=== PATIENT | female | born 1970 | race Caucasian/White ===

== ENCOUNTER 2020-09-25 09:16 | Outpatient (REF) | payer OTHER, SELFPAY ==
[2020-09-25 09:34] LABS: COVID-19 Test Negative (Negative); IDNOW Serial# 55D5AD1C
== END 2020-09-25 09:17 | disposition home or self-care (01) ==
LOC: HO.EMPCOV 09:16
PROVIDERS: Visit Provider Internal Medicine
DX: Z20.828 Contact with and (suspected) exposure to other viral communicable diseases (principal)
CPT/HCPCS: 36415; 87635; C9803

== ENCOUNTER → 2020-12-04 09:26 | Outpatient (BNVA) | payer OTHER, SELFPAY | PROVIDERS: Visit Provider Physician Assistant | DX: M77.11 Lateral epicondylitis, right elbow (principal) | CPT/HCPCS: 20551; 20600; J1020 ==

== ENCOUNTER 2021-04-26 07:38 | Day surgery (SDC) | payer OTHER, SELFPAY ==
[2021-04-23 08:32] VITALS: BMI 30.4
--- NOTE | 2021-04-25 13:09 | P.CONAN_ITS ---
Documented by User: Rachael Saavedra 04/25/21 13:14 HPI - Anesthesia Eval Consult details Narrative: 50yo F for Upper Endoscopy and Colonoscopy afib, no anticoag PMFSH Active Problems Active Problems: All Active Problems (Updated 04/24/21 @ 14:23 by Sarai Zapata) Right tennis elbow (Acute) Past Medical History Medical History (Updated 04/24/21 @ 14:23 by Sarai Zapata) Arrhythmia Atrial fibrillation COVID-19 vaccine series completed GERD (gastroesophageal reflux disease) Mitral valve prolapse Family History Family History Mother No problems noted. Father No problems noted. Surgical History Surgical History (Updated 04/24/21 @ 14:23 by Sarai Zapata) H/O colonoscopy History of cardiac radiofrequency ablation History of esophagogastroduodenoscopy (EGD) Social History Social History Alcohol intake: current Advance Directives: No Advance Directives Information Provided: Yes Meds Allergies Allergy/AdvReac Type Severity Reaction Status Date / Time azithromycin [AZITHROMYCIN] Allergy Intermediate ABDOMINAL Verified 04/23/21 08:32 PAIN Penicillins [PENICILLINS] Allergy Unknown ? RXN Verified 12/04/20 09:31 BABY - ? HIVES Home Medications Medication Instructions Recorded Confirmed Last Taken Type metoprolol succinate 50 mg 1 tab PO DAILY 04/23/21 04/23/21 Unknown History tablet,extended release 24 hr esomeprazole magnesium 40 mg 40 mg PO DAILY 04/24/21 04/24/21 Unknown History capsule,delayed release Exam Exam Date and Time: April 25, 2021 1309 Height,Weight and Vital Signs: Height 5 ft 7.5 in Weight 89.358 kg Narrative Narrative: ECHO 2019 LV sys function is normal LVEF 60-65% Mild anterior mitral leaf thickening but no prolapse. No significant mitral regurg. Mild tricuspid regurg Assessment and Plan Assessment Anesthesia Assessment: Chart Reviewed Documented by User: Yaquelin Gamboa 04/26/21 08:51 [facility] Past Medical History Medical History (Updated 04/24/21 @ 14:23 by Sarai Zapata) Arrhythmia Atrial fibrillation COVID-19 vaccine series completed GERD (gastroesophageal reflux disease) Mitral valve prolapse Functional capacity: independent ambulation Patient : No Family History Family History Mother No problems noted. Father No problems noted. Family history of problems with anesthesia: No Surgical History Surgical History (Updated 04/24/21 @ 14:23 by Sarai Zapata) H/O colonoscopy History of cardiac radiofrequency ablation History of esophagogastroduodenoscopy (EGD) Social History Social History Alcohol intake: current Advance Directives: No Advance Directives Information Provided: Yes Meds Allergies Allergy/AdvReac Type Severity Reaction Status Date / Time azithromycin [AZITHROMYCIN] Allergy Intermediate ABDOMINAL Verified 04/23/21 08:32 PAIN Penicillins [PENICILLINS] Allergy Unknown ? RXN Verified 12/04/20 09:31 BABY - ? HIVES Home Medications Medication Instructions Recorded Confirmed Last Taken Type metoprolol succinate 50 mg 1 tab PO DAILY 04/23/21 04/23/21 Unknown History tablet,extended release 24 hr esomeprazole magnesium 40 mg 40 mg PO DAILY 04/24/21 04/24/21 Unknown History capsule,delayed release Exam Airway TM Dist: >3cm Neck ROM: Full Heart: RRR Lungs: CTA Assessment and Plan Final Anesthetic Review Family History of Problems with Anesthesia: No
[2021-04-26 08:03] LABS: UPreg QC Valid YES; Urine Pregnancy NEGATIVE (NEGATIVE)
[2021-04-26 08:23] VITALS: BP 139/79; PULSE 80; RESP 20; TEMP 37.1; O2SAT 98
[2021-04-26] MEDS: Lactated Ringers 1,000 ML 100 ML IVCONT (08:33)
--- NOTE | 2021-04-26 09:27 | P.HPSUR_ITS ---
Pre-Procedural Eval Section A Date of Service: 04/26/21 Section B Chief Complaint: reflux disease,change in bowel Details of Present Illness: gerd, change in bowels Relevant Family History (Specify if Yes): No Relevant Social History: None Present Medications: see Short Stay Collaborative assessment Medical History: No relevant PMH History of Previous Operations: No relevant previous surgery Allergies: Allergies Allergy/AdvReac Type Severity Reaction Status Date / Time azithromycin [AZITHROMYCIN] Allergy Intermediate ABDOMINAL Verified 04/23/21 08:32 PAIN Penicillins [PENICILLINS] Allergy Unknown ? RXN Verified 12/04/20 09:31 BABY - ? HIVES Review of Systems Sugical H&P ROS: Negative: Constitution, Cardiovascular, Respiratory, Neurological, Psychiatric, Hem-Onc, Allergic/Immunologic, Gastrointestinal, Ge nitourinary, Musculoskeletal, Integumentary, Endocrine and Eyes/Ears/Nose/Throat Exam Surgical H&P Exam: Normal: HEENT, Normal: Heart, Normal: Lungs, Normal: Extremities, Normal: Abdomen, Normal: Skin and Normal: Neurological Plan Diagnosis/Plan: Unchanged I have reviewed the history and physical and performed a pertinent physical examination on my patient. No changes have occurred unless specified.
[2021-04-26 10:07] VITALS: BP 116/63; PULSE 77; RESP 16; TEMP 37; O2SAT 99
--- NOTE | 2021-04-26 10:07 | PM.OP ---
Brief Operative Note Date of Service: 04/26/21 Pre-op diagnosis: gerd, change inbowels Post-op diagnosis: same Procedure: egd,colon Surgeon: Rebel Matias Anesthesia: MAC Was an Mouthpiece Maker used for this Procedure?: No Estimated blood loss (mL): 5 Pathology: other (see nurses notes) Condition: stable Disposition: PACU
--- NOTE | 2021-04-26 10:20 | OP_ITS ---
SURGEON: Rebel Matias MD INDICATIONS: 1. Gastroesophageal reflux disease. 2. Change in bowel habits. PREOPERATIVE DIAGNOSIS: POSTOPERATIVE DIAGNOSIS: PROCEDURE PERFORMED: ESTIMATED BLOOD LOSS: COMPLICATIONS: ANESTHESIA: Medications, monitored anesthesia care. ASSISTANTS: SPECIMENS: PROCEDURES PERFORMED: 1. Upper endoscopy with biopsy. 2. Colonoscopy to the terminal ileum. DESCRIPTION OF PROCEDURE: History and physical performed. The risks and benefits of the procedure were explained to the patient. An informed consent was obtained. The patient was placed in left lateral decubitus position. The videogastroscope was introduced into the esophagus, stomach, and duodenum. Examination was performed. The scope was removed. She tolerated the procedure well and was repositioned for colonoscopy. Digital rectal exam was performed and was found to be normal. The Olympus pediatric video colonoscope was introduced into the rectum and advanced to the cecum without difficulty. The cecum was identified by transillumination, palpation, and identification of ileocecal valve. Examination was performed. The scope was removed. She tolerated both procedures well and was taken to the recovery area in stable condition. FINDINGS: UPPER ENDOSCOPY: ESOPHAGUS: The esophagus was normal. Biopsies were obtained from the EG junction. There was no esophagitis. STOMACH: Stomach showed multiple benign-appearing gastric polyps, mainly in the fundus, all less than 10 mm. Two of these were biopsied. The previously noted pancreatic rest was present in the antrum measuring approximately 10 to 12 mm. This had a dimpled appearance. Biopsies were obtained from the mucosa. Antral biopsies were also obtained to evaluate for H pylori. DUODENUM: The bulb and second portion were normal. COLONOSCOPY: The terminal ileum was normal. The visualized colonic mucosa was normal. The quality of the prep was good. No polyps were identified. Retroflexed examination showed small internal hemorrhoids. There was mild sigmoid diverticulosis. IMPRESSION: 1. Gastroesophageal reflux disease. 2. Normal colonoscopy. RECOMMENDATIONS: 1. Follow up biopsy results. 2. Repeat colonoscopy is recommended in 10 years for average risk individuals. MD TERRI Talbert/MAY / [id number] MTDD
[2021-04-26 10:22] VITALS: BP 117/57; PULSE 73; RESP 16; TEMP 37; O2SAT 98
--- NOTE | 2021-04-26 12:18 | HO.POSTANES ---
Post Anesthesia Evaluation Post Anesthesia Evaluation Vital Signs: Vital Signs Temp Pulse Resp BP Pulse Ox 04/26/21 10:22 98.6 F 73 16 117/57 L 98 04/26/21 10:07 98.6 F 77 16 116/63 99 04/26/21 08:23 98.7 F 80 20 139/79 98 Anesthesia: Monitored Mental Status: Awake Pain Control: Satisfactory Nausea/Vomiting: None Hydration: Adequate Anesthesia-Related Issues: No Anes. Related Issues
== END 2021-04-26 11:33 | disposition home or self-care (01) ==
PROVIDERS: Nurse Practitioner; PCP Internal Medicine; Visit Provider Internal Medicine Gastroenterology
PROC: (CPT 45378; principal; 2021-04-26 09:10)
DX: R19.4 Change in bowel habit (principal); Z86.010 Personal history of colon polyps; K57.30 Diverticulosis of large intestine without perforation or abscess without bleeding; K64.8 Other hemorrhoids; K21.9 Gastro-esophageal reflux disease without esophagitis; K31.7 Polyp of stomach and duodenum; I48.91 Unspecified atrial fibrillation; I34.1 Nonrheumatic mitral (valve) prolapse; J32.9 Chronic sinusitis, unspecified; Z79.899 Other long term (current) drug therapy; Z87.891 Personal history of nicotine dependence; Z88.0 Allergy status to penicillin; Z88.1 Allergy status to other antibiotic agents
CPT/HCPCS: 45378; 43239; 81025; 88305; 88342

== ENCOUNTER → 2021-05-14 15:02 | Outpatient (BNVA) | payer OTHER, SELFPAY | PROVIDERS: PCP Internal Medicine; Referring Provider Internal Medicine; Visit Provider Internal Medicine Cardiovascular Disease | DX: I48.0 Paroxysmal atrial fibrillation (principal); R00.2 Palpitations | CPT/HCPCS: 93005 ==

== ENCOUNTER 2021-07-02 07:27 | Outpatient (REF) | payer OTHER, SELFPAY ==
--- NOTE | ~2021-07-02 | MM_ITS ---
EXAMINATION: MM SCREENING DIGITAL BREAST TOMOSYNTHESIS, BILATERAL CLINICAL INFORMATION: Screening. Asymptomatic. Personal history ultrasound-guided left breast biopsy 2016, fibroadenoma. Family history 5 maternal cousins with breast cancer. The lifetime risk of breast cancer based on the Tyrer-Cuzick Model is 16%. COMPARISON: Mammography: 06/07/2020, 02/24/2019, 12/08/2017 TECHNIQUE: Digital breast tomosynthesis is performed in both the craniocaudal and mediolateral oblique views along with computer-aided detection (CAD). Synthesized 2D images are generated from the tomosynthesis. FINDINGS: There are scattered areas of fibroglandular density (ACR BI-RADS breast composition Category b). Parenchymal pattern is similar to prior exams. There is no interval mass or architectural lesion or developing density. No abnormal calcifications. Again, there is a biopsy clip marker overlying stable macrolobulated nodule posterior upper outer left breast corresponding to the known fibroadenoma. There is a dermal lesion overlying the posterior 6:00 right breast. The axilla are unremarkable. No significant changes from prior exams. MM/MM tomosynthesis screening BI IMPRESSION: No mammographic evidence of malignancy. ASSESSMENT: BI-RADS 2: Benign RECOMMENDATION: Routine annual mammography screening. This patient's information was entered into a reminder system with a target due date for their next mammogram.
== END 2021-07-02 07:28 | disposition home or self-care (01) ==
LOC: HO.MAMMO 07:27
PROVIDERS: PCP Internal Medicine; Visit Provider Obstetrics & Gynecology Obstetrics
DX: Z12.31 Encounter for screening mammogram for malignant neoplasm of breast (principal)
CPT/HCPCS: 77063; 77067

== ENCOUNTER → 2021-07-08 07:06 | Outpatient (REF) | payer OTHER, SELFPAY ==
--- NOTE | 2021-07-08 07:09 | HM_ITS ---
Total monitoring time 2 days and 23 hours. Underlying rhythm is sinus. Minimum heart rate 47/Min. Maximum 121/minute. Average 60/Min. No atrial fibrillation or flutter. No pauses. Rare PACs; longest episode of 8 beats. Minimal burden. 2 patient events, possibly related to PACs. MTDD
== END ==
LOC: HO.CARD 07:06
PROVIDERS: PCP Internal Medicine; Visit Provider Internal Medicine Cardiovascular Disease
DX: R00.2 Palpitations (principal)
CPT/HCPCS: 93242

== ENCOUNTER 2021-10-29 07:43 | Outpatient (REF) | payer OTHER, SELFPAY ==
--- NOTE | ~2021-10-29 | XR_ITS ---
EXAMINATION: XR HAND, LEFT CLINICAL INFORMATION: Pain COMPARISON: None TECHNIQUE: PA, lateral, and oblique views of the left hand. FINDINGS: Bone alignment is normal. No fracture or dislocation is seen. There may be ulnar minus variance at the wrist. Joint spaces are normal. Soft tissues are normal. XR/XR hand LT min 3V IMPRESSION: Ulnar minus variance at the wrist otherwise unremarkable exam.
== END 2021-10-29 07:44 | disposition home or self-care (01) ==
LOC: HO.HOSX 07:43
PROVIDERS: Visit Provider Physician Assistant
DX: M67.442 Ganglion, left hand (principal)
CPT/HCPCS: 20612; 73130

== ENCOUNTER → 2022-05-19 15:17 | Outpatient (BNVA) | payer OTHER, SELFPAY | PROVIDERS: PCP Internal Medicine; Referring Provider Internal Medicine; Visit Provider Internal Medicine Cardiovascular Disease | DX: I48.0 Paroxysmal atrial fibrillation (principal) | CPT/HCPCS: 93005 ==

== ENCOUNTER 2022-07-04 07:18 | Outpatient (REF) | payer OTHER, SELFPAY ==
--- NOTE | ~2022-07-04 | MM_ITS ---
EXAMINATION: MM SCREENING DIGITAL BREAST TOMOSYNTHESIS, BILATERAL CLINICAL INFORMATION: Screening. Asymptomatic. The lifetime risk of breast cancer based on the Tyrer-Cuzick Model is 19%. COMPARISON: Mammography: 07/02/2021, 06/07/2020, 02/24/2019, 12/08/2017 TECHNIQUE: Digital breast tomosynthesis is performed in both the craniocaudal and mediolateral oblique views along with computer-aided detection (CAD). Synthesized 2D images are generated from the tomosynthesis. FINDINGS: There are scattered areas of fibroglandular density (ACR BI-RADS breast composition Category b). There are no significant masses, abnormal calcifications, or other abnormalities. Parenchymal pattern is similar to prior studies. There is no developing density or architectural abnormality. There is a ribbon shaped biopsy clip marker overlying stable nodule posterior upper outer left breast, consistent with biopsy proven fibroadenoma. Incidental dermal lesion again noted overlying posterior 6:00 right breast. The axilla and skin contours are unremarkable. No significant changes. MM/MM tomosynthesis screening BI IMPRESSION: No mammographic evidence of malignancy. ASSESSMENT: BI-RADS 2: Benign RECOMMENDATION: Routine annual mammography screening. This patient's information was entered into a reminder system with a target due date for their next mammogram.
== END 2022-07-04 07:19 | disposition home or self-care (01) ==
LOC: HO.MAMMO 07:18
PROVIDERS: PCP Internal Medicine; Visit Provider Internal Medicine
DX: Z12.31 Encounter for screening mammogram for malignant neoplasm of breast (principal)
CPT/HCPCS: 77063; 77067

== ENCOUNTER 2022-11-18 11:09 | Outpatient (REF) | payer OTHER, SELFPAY ==
--- NOTE | ~2022-11-18 | MR_ITS ---
EXAMINATION: MR KNEE WITHOUT CONTRAST, LEFT CLINICAL INFORMATION: Left knee pain. Effusion. COMPARISON: Left knee radiographs dated 05/19/2022. TECHNIQUE: MRI of the knee without contrast was performed using routine sequences on a high-field scanner. FINDINGS: MENISCI: Medial Meniscus: Edema along the periphery of the posterior meniscal body and posterior horn which could indicate a nondisplaced meniscocapsular injury. No articular surface meniscal tear. Lateral Meniscus: Intact. LIGAMENTS: Cruciate: Intact. Collateral: Minimal edema adjacent to the medial collateral ligament consistent with a grade 1 sprain. Intact fibular collateral ligament. EXTENSOR MECHANISM: Intact. ARTICULAR CARTILAGE/BONE: Patellofemoral Compartment: Patellar median ridge and lateral patellar facet articular cartilage signal heterogeneity with areas of full-thickness fissuring and minimal subchondral cystic change. Central and medial trochlea signal heterogeneity with areas of near full-thickness loss. Small marginal osteophytes. Medial Compartment: Articular cartilage thinning with near full-thickness loss at the weightbearing medial femoral condyle. Small marginal osteophytes. Lateral Compartment: Lateral tibial plateau partial-thickness articular cartilage loss with adjacent lateral femoral condyle focal full-thickness loss. Tiny marginal osteophytes. JOINT FLUID AND BURSAE: Small joint effusion and small Crump's cyst. Small loose bodies within the superolateral joint recess measuring up to 0.3 and 0.5 cm. Diffuse lobulated loose bodies versus synovitis within the Crump's cyst measuring up to 2.3 cm in craniocaudal dimension. MR/MR knee LT wo con IMPRESSION: 1. Edema along the periphery of the medial meniscus posterior body and posterior horn which could indicate a nondisplaced meniscocapsular injury. No articular surface meniscal tear. 2. Probable grade 1 sprain of the medial collateral ligament. 3. Mild tricompartmental osteoarthritis. Small joint effusion and small Crump's cyst. Multiple loose bodies within the superolateral joint recess measuring up to 0.5 cm. Diffuse lobulated loose bodies versus synovitis within the Crump's cyst measuring up to 2.3 cm.
== END 2022-11-18 11:10 | disposition home or self-care (01) ==
LOC: HO.MRI 11:09
PROVIDERS: PCP Internal Medicine; Visit Provider Physician Assistant
DX: M17.12 Unilateral primary osteoarthritis, left knee (principal)
CPT/HCPCS: 73721

== ENCOUNTER 2022-11-28 06:42 | Outpatient (REF) | payer OTHER, SELFPAY ==
[2022-11-28 06:52] LABS: MANUAL DIFF FLAG NO
[2022-11-28 07:59] LABS: Basophils Percent Auto 0.4 % (0-2); Eosinophils Absolute Auto 0.3 X10*3/uL (0.0-0.4); Eosinophils Percent Auto 3.8 % (0-4); Hematocrit 41.3 % (37.0-47.0); Hemoglobin 13.5 g/dl (12.0-16.0); Imm Gran Abs Auto 0.05 X10*3/uL (0.00-0.03); Imm Gran Pct Auto 0.7 % (0.0-0.4); Lymphocytes Absolute Auto 1.6 X10*3/uL (1.2-4.9); Mean Corpuscular HGB Conc 32.7 g/dl (31.0-35.0); Mean Corpuscular Hemoglobin 29.2 pg (27.0-33.0); Mean Corpuscular Volume 89.2 fL (80.0-98.0); Mean Platelet Volume 10.5 fL (9.4-12.3); Monocytes Absolute Auto 0.5 X10*3/uL (0.1-1.2); Monocytes Percent Auto 6.4 % (2-11); Neutrophils Absolute Auto 4.8 x10*3/uL (2.0-8.3); Neutrophils Percent Auto 66.7 % (45-73); Platelet Count 212 X10*3/uL (160-400); Red Blood Count 4.63 X10*6/uL (4.20-5.50); White Blood Count 7.2 X10*3/uL (4.8-10.8)
[2022-11-28 08:10] LABS: Estimated Average Glucose 94 mg/dL; Hemoglobin A1c % 4.9 %
[2022-11-28 08:42] LABS: Alanine Aminotransferase 34 U/L (0-31); Albumin Level 4.3 g/dL (3.5-5.0); Alkaline Phosphatase 66 U/L (39-117); Anion Gap 11 (12-20); Aspartate Amino Transferase 23 U/L (5-31); Bilirubin Total 0.5 mg/dL (0.0-1.0); Blood Urea Nitrogen 15 mg/dL (9-16); Carbon Dioxide 27 mmol/L (22-29); Chloride 107 mmol/L (96-108); Cholesterol 209 mg/dL; Estimated Glomerular Filt Rate > 60; Glucose Random 95 mg/dL (60-115); HDL Cholesterol 48 mg/dL; LDL Cholesterol Calculated 144 mg/dl; Potassium 4.3 mmol/L (3.3-5.1); Sodium 141 mmol/L (135-145); Total Protein 6.7 g/dL (6.5-8.0); Triglycerides 88 mg/dL
[2022-11-28 09:00] LABS: Thyroid Stimulating Hormone 1.46 uIU/mL (0.32-4.0); Vitamin D 25-OH Total 22.3 ng/mL (>30)
[2022-11-28 10:16] LABS: Appearance Urine Cloudy; Color Urine Dark Yellow; Glucose Urine UA Negative (Negative); Leukocyte Esterase Urine Trace (Negative); Nitrite Urine Negative (Negative); PH 5.5 (5.0-9.0); Specific Gravity - Urine 1.025 (1.005-1.025); UMIC TRIGGER UA YES; Urine Blood Moderate (2+) (Negative); Urine Ketones Trace mg/dL (Negative); Urine Protein Negative (Neg-Trace)
[2022-11-28 10:25] LABS: Bacteria Urine 1+ (None Seen); Hyaline Casts Urine 0-2 /LPF (0-2); Squamous Epithelial Cell Urine >20 /HPF (0-2); WBC Urine 0-5 /HPF (0-5)
== END 2022-11-28 06:43 | disposition home or self-care (01) ==
LOC: HO.LAB 06:42
PROVIDERS: PCP Internal Medicine; Visit Provider Internal Medicine
DX: R53.81 Other malaise (principal); E78.00 Pure hypercholesterolemia, unspecified; R53.83 Other fatigue; R73.01 Impaired fasting glucose; E55.9 Vitamin D deficiency, unspecified
CPT/HCPCS: 36415; 80053; 80061; 81001; 81003; 82306; 83036; 84443; 85025

== ENCOUNTER → 2023-01-20 10:41 | Outpatient (REF) | payer OTHER, SELFPAY ==
--- NOTE | 2023-01-20 10:46 | ECG_ITS ---
Test Reason : i10 htn preop Blood Pressure : / mmHG Vent. Rate : 062 BPM Atrial Rate : 062 BPM P-R Int : 150 ms QRS Dur : 088 ms QT Int : 428 ms P-R-T Axes : 029 026 025 degrees QTc Int : 434 ms Normal sinus rhythm Normal ECG No previous ECGs available Referred By: Sabas Hewitt Electronically Signed By:LEATHA FUNK MD
== END ==
LOC: HO.CARD 10:41
PROVIDERS: PCP Internal Medicine; Visit Provider Orthopaedic Surgery
DX: I10 Essential (primary) hypertension (principal)
CPT/HCPCS: 93005

== ENCOUNTER → 2023-01-21 12:07 | Outpatient (BNVA) | payer OTHER, SELFPAY | PROVIDERS: PCP Internal Medicine; Visit Provider Physician Assistant Medical | DX: Z13.89 Encounter for screening for other disorder (principal) | CPT/HCPCS: 36415; 84450; 84460; 86803; 87389; 99203 ==

== ENCOUNTER 2023-04-15 14:00 | Outpatient (RCR) | payer OTHER, SELFPAY | END 2023-04-15 15:27 | disposition home or self-care (01) | LOC: HO.PT 14:00 | PROVIDERS: PCP Internal Medicine; Visit Provider Orthopaedic Surgery | DX: M24.661 Ankylosis, right knee (principal) | CPT/HCPCS: 97110; 97140; 97162; 97530 ==

== ENCOUNTER → 2023-07-14 14:47 | Outpatient (REF) | payer OTHER, SELFPAY ==
--- NOTE | 2023-07-14 14:51 | CA_ITS ---
Transthoracic Echocardiogram Patient (Last, First, Middle): Lizzy Ayon M Gender: Female Date of : 1970 Age: 52 Procedure Date: 07/14/2023 Procedure Type: Transthoracic Echocardiogram Location: OP Height: 170.18 cm Weight: 88.45 kg BSA: 2.00 m2 Heart Rate: bpm BP: 118 / 78 mmHg Tangled Yarn Worker: TO Referring MD: Naveen Avitia MD Street Car Mechanic: Naveen Avitia MD Symptoms: I48.0 - Paroxysmal atrial fibrillation Study Quality: Adequate ECG Rhythm: Sinus Conclusions: - 1. Normal LV ejection fraction of 60-65% 2. Mildly dilated left atrium 3. Normal cardiac valvular Dopplers next 4. Normal RV systolic pressure 5. No pericardial effusion Findings Left Ventricle Normal left ventricular size, thickness, and systolic function. The visually estimated ejection fraction is between 60-65%. Spectral Doppler is indicative of a normal filling pattern. Peak GLS is -19.5%, within normal limits. Right Ventricle Normal right ventricular cavity size and systolic function. Atria The left atrium is mildly dilated. There is no evidence of interatrial shunt. The right atrium is normal in size. Aortic Valve Normal aortic valve structure and function. There is no aortic valve stenosis. There is no aortic valve regurgitation. Mitral Valve There is mild anterior mitral leaflet thickening. There is trace mitral valve regurgitation. There is no mitral valve stenosis. Pulmonic Valve The pulmonic valve is likely normal. There is trace pulmonic valve regurgitation. Tricuspid Valve Normal tricuspid valve structure. There is trace tricuspid valve regurgitation. Normal right atrial pressure. There is no evidence of pulmonary hypertension. Great Vessels All visible segments of the aorta are normal in size. The pulmonary artery was not well visualized. Venous The inferior vena cava is normal in size and collapses greater than 50% with inspiration. Pericardium/Pleural There is no evidence of pericardial effusion. Prior Study Comparison No significant change compared to prior study dated: 05/14/2019. Measurements 2D Linear Measurements IVSd: 1.10 0.6-0.9/0.6-1.0 cm LVIDd: 5.30 3.9-5.3/4.2-5.9 cm LVIDd Index: 2.65 2.4-3.2/2.2-3.1 cm/m2 LVIDs: 3.20 2.0-3.6 cm LVPWd: 0.80 0.7-1.1 cm LA Diam: 4.10 2.7-3.8/3.0-4.0 cm LAIDs Index: 2.05 1.5-2.3 cm/m2 LV Mass: 233.35 67-162/88-224 g LV Mass Index: 116.67 43-95/49-115 g/m2 LVOT Diam: 2.20 3.0+(-)1.3 cm 2D Systolic Function EF 4C: 59.90 >55% EF 2C: 64.40 >55% EF BiP: 61.70 >55% Mitral Valve MV Pk E: 0.59 MV PK A: 0.33 MV Decel Time: 309.00 E/A: 1.80 E'Lateral: 13.30 E'Medial: 7.72 E/E' Med: 7.70 E/E' Lat: 4.40 PHT: 91.00 MVA PHT: 2.42 Decel Caroline: 1.91 Aortic Valve AoV Pk Toby: 1.78 AoV Mn Toby: 1.16 AoV VTI: 0.38 AoV Pk Grad: 13.00 Aov Mn Grad: 6.00 ELLA Cont.VTI: 2.37 LVOT LVOT Pk Toby: 1.13 LVOT Mn Toby: 0.68 LVOT VTI: 0.24 LVOT Pk Grad: 5.00 LVOT Mn Grad: 2.00 LVOT Diam: 2.20 LVOT Area: 3.80 Diastolic Function MV Pk E: 0.59 MV Pk A: 0.33 E/A: 1.80 E'Medial: 7.72 E/E' Med: 7.70 E' Laterial: 13.30 E/E' Lat: 4.40 Right Ventricle TAPSE (mm): 24.40 TVS' Toby: 11.70 Tricuspid Valve TR Pk Toby: 2.43 TR Pk Grad: 24.00 RA Press: 8.00 RVSP: 32.00 Great Vessels Aorta Sinus of Valsalva: 2.90 2.0-3.5 cm Ao Asc: 3.30 2.1-3.4 cm Updated in Other Vendor System with Status of Final Naveen Avitia MD electronically signed on 07/15/2023 12:48:53 PM with status of Final
== END ==
LOC: HO.CARD 14:47
PROVIDERS: PCP Internal Medicine; Visit Provider Internal Medicine Cardiovascular Disease
DX: I48.0 Paroxysmal atrial fibrillation (principal); R00.2 Palpitations
CPT/HCPCS: 93306; 93356

== ENCOUNTER → 2023-07-14 14:51 | Outpatient (BNV) | payer OTHER, SELFPAY | PROVIDERS: PCP Internal Medicine; Visit Provider Internal Medicine Cardiovascular Disease | DX: I48.0 Paroxysmal atrial fibrillation (principal) | CPT/HCPCS: 93306 ==

== ENCOUNTER 2023-07-15 09:56 | Emergency (ER) | payer OTHER, SELFPAY ==
--- NOTE | 2023-07-15 | ECG_ITS ---
Test Reason : cp Blood Pressure : / mmHG Vent. Rate : 080 BPM Atrial Rate : 080 BPM P-R Int : 144 ms QRS Dur : 084 ms QT Int : 386 ms P-R-T Axes : 062 022 -06 degrees QTc Int : 445 ms Normal sinus rhythm Nonspecific ST abnormality Abnormal ECG When compared with ECG of 20-JAN-2023 10:55, ST now depressed in Inferior leads Lateral leads Referred By: Generic ED Physician Electronically Signed By:HELDER PALMER MD
[2023-07-15 10:09] VITALS: BP 158/78; PULSE 82; RESP 18; TEMP 36.3; O2SAT 98; BMI 30.1
--- NOTE | 2023-07-15 10:32 | ED.CHESTPAIN ---
HPI - Chest Pain General Chief Complaint: Chest Pain Stated Complaint: Chest Pain Time Seen by Provider: 07/15/23 10:24 Source: patient Mode of arrival: ambulatory Limitations: no limitations History of Present Illness HPI narrative: anxiety attack at work followed by continued chest pain MD complaint: chest pain Onset (ago): minute(s) Timing of current episode: constant Related Data Home Medications Medication Instructions Recorded Confirmed esomeprazole magnesium 40 mg 40 mg PO DAILY 04/24/21 05/19/22 capsule,delayed release sertraline 50 mg tablet 50 mg PO DAILY 05/19/22 05/19/22 Previous Rx's Medication Instructions Recorded metoprolol succinate 50 mg 50 mg PO DAILY 90 days #90 tabs 03/26/23 tablet,extended release 24 hr Allergies Allergy/AdvReac Type Severity Reaction Status Date / Time azithromycin [AZITHROMYCIN] Allergy Intermediate ABDOMINAL Verified 07/15/23 10:09 PAIN Penicillins [PENICILLINS] Allergy Unknown ? RXN Verified 07/15/23 10:09 BABY - ? HIVES Review of Systems Review of Systems: Yes all other systems are reviewed and are negative Neurologic: Denies Sensory deficit (Neuro) [facility] Past Medical History Medical History Paroxysmal atrial fibrillation COVID-19 vaccine series completed Arrhythmia GERD (gastroesophageal reflux disease) Mitral valve prolapse Surgical History History of cardiac radiofrequency ablation H/O colonoscopy History of esophagogastroduodenoscopy (EGD) Family History Family History Mother No problems noted. Father No problems noted. Social History Social History Unable to assess alcohol history related to: Unknown Alcohol intake: current Smoked in Last 30 Days: No Use of substances other than those prescribed or required for medical reasons: Unknown Advance Directives: No Patient : No Physical Exam Vital Signs: Vital Signs: Last Vital Signs Temp 97.4 F 07/15/23 10:09 Pulse 73 07/15/23 11:51 Resp 20 07/15/23 11:51 BP 134/78 07/15/23 11:51 Pulse Ox 99 07/15/23 11:51 O2 Del Method Room Air 07/15/23 11:51 BMI result Body Mass Index 30.1 Const: Other: tearful, obese female Nutritional Appearance: obese Orientation/consciousness: oriented to person and patient oriented x3 Limitations: no limitations HEENT: Head: Yes normal to inspection Ears: external ears normal General nose exam: Normal external nose present Mouth: Normal oral and palatal mucosa present and oropharynx normal Throat: Yes posterior oropharynx normal Eyes: General: appearance normal, both eyes and all related structures Neck: Other: supple Neck: Yes normal visual inspection Chest: Chest palpation & inspection: normal inspection of the chest Resp: Auscultation: clear to auscultation bilaterally Cardio: Jugular venous distension: no JVD Rate: regular rate Rhythm: regular rhythm Heart sounds: S1 normal heart sound present and S2 normal heart sound present GI: Inspection: Yes normal to inspection Palpation (GI): Soft to palpation, nontender and No hepatosplenomegaly present Auscultation: normal bowel sounds : General: Yes no CVA tenderness Back/Spine/Pelvis: Back: no CVA tenderness Skin: General skin exam: no rashes or lesions noted Neuro: General: oriented to person and patient oriented x3 Cranial nerves: Yes CN's II-XII intact bilaterally Motor exam (neuro): 5/5 motor strength present throughout Sensory Exam: No Sensory deficit (Neuro) Extrem: General: Yes normal to inspection Psych: Appearance: grossly normal Course Reevaluation(s) Reevaluation #1: Initial EKG had st depressions inferiorly, her troponin was 20. Her repeat EKG is normal but her troponin is 800. Discussed with Dr. Avitia will transfer to [facility] Time: 14:02 Reevaluation #2: I spent 40 minutes of critical care, with interventions, assessments, speaking to patient, consultants, and family. Time: 14:02 Medications Administered Generic Name Dose Route Start Last Admin Trade Name Freq PRN Reason Stop Dose Admin Aspirin 162 mg 07/15/23 10:45 07/15/23 10:45 Aspirin Enteric Coated 81 Mg Tablet. PO 162 mg DAILY BRUNA Administration Heparin Sodium/Sodium Chloride 25,000 unit in 250 mls @ 0 mls/hr 07/15/23 14:15 07/15/23 14:29 Heparin Sodium,Porcine/1/2ns IVCONT 10.63 units/kg/hr .Q0M BRUNA 10 mls/hr Administration Protocol Per Protocol Nitroglycerin 0.4 mg 07/15/23 10:33 07/15/23 10:45 Nitroglycerin 0.4 Mg Tab.Subl SUBLINGUAL 0.4 mg Q5MX3 PRN Administration Chest Pain Discontinued Medications Generic Name Dose Route Start Last Admin Trade Name Freq PRN Reason Stop Dose Admin Heparin Sodium (Porcine) 4,000 unit 07/15/23 14:02 07/15/23 14:23 Heparin Sodium,Porcine 5,000 Unit/Ml Vial IVPUSH 07/15/23 14:03 4,000 unit ONCE ONE Administration Nitroglycerin 1 inch 07/15/23 11:35 07/15/23 11:47 Nitroglycerin 2 % Oint 1 Gm Packet TRANSDERMA 07/15/23 11:36 1 inch ONCE ONE Administration Medical Decision Making Differential Diagnosis Differential Diagnoses: The differential diagnosis associated with the presentation includes (STEMI, Nonstemi, cardiac ischemia, anxiety) Admission/Observation Consideration of admission/observation: Escalation of care including admission/observation considered (upon arrival patient was considered for admission) Consult Healthcare Provider Management of the patient was discussed with: Critical Power Technician (lamp cleaner) Lab Data MDM Lab Attestation statement: I reviewed the patient's lab results. (troponin rising) 07/15/23 10:30 07/15/23 10:30 Labs: Lab Results 07/15/23 07/15/23 07/15/23 Range/Units 10:30 13:08 14:20 WBC 8.3 (4.8-10.8) X10*3/uL RBC 4.65 (4.20-5.50) X10*6/uL Hgb 13.4 (12.0-16.0) g/dl Hct 41.0 (37.0-47.0) % MCV 88.2 (80.0-98.0) fL MCH 28.8 (27.0-33.0) pg MCHC 32.7 (31.0-35.0) g/dl RDW 13.0 (11.0-16.0) % Plt Count 222 (160-400) X10*3/uL MPV 10.4 (9.4-12.3) fL Immature Gran % (Auto) 0.6 H (0.0-0.4) % Neut % (Auto) 68.3 (45-73) % Lymph % (Auto) 22.5 (20-40) % Moore % (Auto) 5.7 (2-11) % Eos % (Auto) 2.5 (0-4) % Baso % (Auto) 0.4 (0-2) % Lymph # (Auto) 1.9 (1.2-4.9) X10*3/uL Moore # (Auto) 0.5 (0.1-1.2) X10*3/uL Eos # (Auto) 0.2 (0.0-0.4) X10*3/uL Baso # (Auto) 0.0 (0.0-0.2) X10*3/uL Abs Immat Gran (auto) 0.05 H (0.00-0.03) X10*3/uL Absolute Neuts (auto) 5.7 (2.0-8.3) x10*3/uL Absolute Nucleated RBC 0.000 (0.0-0.012) X10*3/uL Nucleated RBC % (auto) 0.0 (0.0-0.2) /100WBC PT 11.6 (11.1-13.3) SEC INR 1.0 (0.9-1.1) aPTT Heparin Protocol 32.9 L (53-77.9) SEC Sodium 139 (135-145) mmol/L Potassium 3.5 (3.3-5.1) mmol/L Chloride 108 (96-108) mmol/L Carbon Dioxide 21 L (22-29) mmol/L Anion Gap 14 (12-20) BUN 12 (9-16) mg/dL Creatinine 0.70 (0.5-1.4) mg/dL Estim Creat Clear Calc 109.7 Estimated GFR > 60 Random Glucose 116 H (60-115) mg/dL Calcium 9.7 D (8.4-10.2) mg/dL Total Bilirubin 0.4 (0.0-1.0) mg/dL AST 34 H (5-31) U/L ALT 45 H (0-31) U/L Alkaline Phosphatase 72 (39-117) U/L Troponin I High Sens 23.2 H 880.4 H* D (<3.5-17.0) ng/L Total Protein 7.4 (6.5-8.0) g/dL Albumin 4.4 (3.5-5.0) g/dL Independent Interpretation I performed an independent interpretation of an: EKG (#1 sinus 80, inferior st depressions #[address] depression has normalized) Chronic Conditions Patient?s care impacted by: Hypertension and Other (atrial fibrillation) Discharge Plan Discharge Clinical Impression: Non-ST elevated myocardial infarction (non-STEMI) Patient Disposition: [facility] Transfer Details: [facility] for eventual cath Prescriptions: No Action metoprolol succinate 50 mg tablet extended release 24 hr 50 mg PO DAILY 90 Days Qty: 90 3RF esomeprazole magnesium 40 mg Capsule,Delayed Release(Dr/Ec) 40 mg PO DAILY sertraline 50 mg tablet 50 mg PO DAILY
[2023-07-15 10:39] LABS: MANUAL DIFF FLAG NO
[2023-07-15 10:42] LABS: Basophils Percent Auto 0.4 % (0-2); Eosinophils Absolute Auto 0.2 X10*3/uL (0.0-0.4); Eosinophils Percent Auto 2.5 % (0-4); Hemoglobin 13.4 g/dl (12.0-16.0); Imm Gran Abs Auto 0.05 X10*3/uL (0.00-0.03); Imm Gran Pct Auto 0.6 % (0.0-0.4); Lymphocytes Absolute Auto 1.9 X10*3/uL (1.2-4.9); Lymphocytes Percent Auto 22.5 % (20-40); Mean Corpuscular HGB Conc 32.7 g/dl (31.0-35.0); Mean Corpuscular Hemoglobin 28.8 pg (27.0-33.0); Mean Corpuscular Volume 88.2 fL (80.0-98.0); Mean Platelet Volume 10.4 fL (9.4-12.3); Monocytes Absolute Auto 0.5 X10*3/uL (0.1-1.2); Monocytes Percent Auto 5.7 % (2-11); Neutrophils Absolute Auto 5.7 x10*3/uL (2.0-8.3); Neutrophils Percent Auto 68.3 % (45-73); Platelet Count 222 X10*3/uL (160-400); Red Blood Count 4.65 X10*6/uL (4.20-5.50); White Blood Count 8.3 X10*3/uL (4.8-10.8)
[2023-07-15] MEDS: Aspirin Enteric Coated 81 MG TABLET.DR 162 MG PO (10:45)
[2023-07-15] MEDS: Nitroglycerin 0.4 MG TAB.SUBL SUBLINGUAL (10:45)
[2023-07-15 11:00] LABS: Alanine Aminotransferase 45 U/L (0-31); Albumin Level 4.4 g/dL (3.5-5.0); Alkaline Phosphatase 72 U/L (39-117); Anion Gap 14 (12-20); Aspartate Amino Transferase 34 U/L (5-31); Bilirubin Total 0.4 mg/dL (0.0-1.0); Blood Urea Nitrogen 12 mg/dL (9-16); Calcium 9.7 mg/dL (8.4-10.2); Carbon Dioxide 21 mmol/L (22-29); Chloride 108 mmol/L (96-108); Creatinine Clr Calc Pharmacy 109.7; Estimated Glomerular Filt Rate > 60; Glucose Random 116 mg/dL (60-115); Potassium 3.5 mmol/L (3.3-5.1); Sodium 139 mmol/L (135-145); Total Protein 7.4 g/dL (6.5-8.0)
[2023-07-15 11:05] LABS: Troponin-I High Sensitivity 23.2 ng/L (<3.5-17.0)
--- NOTE | 2023-07-15 11:36 | ECG_ITS ---
Test Reason : CHEST PAIN Blood Pressure : / mmHG Vent. Rate : 072 BPM Atrial Rate : 072 BPM P-R Int : 134 ms QRS Dur : 084 ms QT Int : 410 ms P-R-T Axes : 022 030 046 degrees QTc Int : 448 ms Normal sinus rhythm Normal ECG When compared with ECG of 15-JUL-2023 10:04, ST no longer depressed in Inferior leads Referred By: Rod Deng Electronically Signed By:HELDER PALMER MD
[2023-07-15] MEDS: Nitroglycerin 2 % Oint 1 GM Packet 1 INCH TRANSDERMA (11:47)
[2023-07-15 11:51] VITALS: BP 134/78; PULSE 73; RESP 20; O2SAT 99
--- NOTE | 2023-07-15 11:54 | PC.NURSE ---
CP unchanged per patient. dr ivan notified. nitro paste applied to L chest wall as ordered.
[2023-07-15 13:55] LABS: Troponin-I High Sensitivity 880.4 ng/L (<3.5-17.0)
[2023-07-15] MEDS: Heparin Sodium,Porcine 5,000 UNIT/ML VIAL 4000 UNIT IVPUSH (14:23)
[2023-07-15] MEDS: Heparin Sodium,Porcine/1/2NS 25,000 UNIT/250 ML IV.SOLN 10 UNIT IVCONT (14:29)
--- NOTE | 2023-07-15 14:30 | PC.NURSE ---
Heparin started after PTT/INR drawn. witnessed by Moises Jane 2nd IV placed.
[2023-07-15 14:34] LABS: Prothrombin Time 11.6 SEC (11.1-13.3)
[2023-07-15 14:36] LABS: PTT Heparin Drip 32.9 SEC (53-77.9)
[2023-07-15 15:45] VITALS: BP 133/78; PULSE 72; RESP 16; TEMP 36.6; O2SAT 97
--- NOTE | 2023-07-15 15:51 | PC.NURSE ---
Report to Stephenie on M7 at [facility].
== END 2023-07-15 15:53 | disposition short-term general hospital (02) ==
PROVIDERS: Emergency Provider Emergency Medicine; PCP Internal Medicine
DX: I21.4 Non-ST elevation (NSTEMI) myocardial infarction (principal); I10 Essential (primary) hypertension; I48.0 Paroxysmal atrial fibrillation; Z79.899 Other long term (current) drug therapy
CPT/HCPCS: 36415; 80053; 84484; 85025; 85610; 85730; 93005; 96374; 99285; J1643

== ENCOUNTER 2023-08-18 15:07 | Outpatient (AMB) | payer OTHER, SELFPAY ==
--- NOTE | 2023-08-18 15:15 | MHC.OFFVIS ---
Intake Vital Signs 08/18/23 15:21 Height 5 ft 7.5 in Weight 200 lb 9.93 oz BMI 31.0 BP 110/70 Blood Pressure Location Lt brachial Position Sitting Pulse 68 Intake Visit Reasons: 1 yr f/up/ fu card cath Intake Note: Follow-up after ED and cardiac cath and echo at [facility] c/o fatigue and has some discomfort in upper chest [place] Required: No Allergies azithromycin [AZITHROMYCIN] Allergy (Intermediate, Verified 07/15/23 10:09) ABDOMINAL PAIN Penicillins [PENICILLINS] Allergy (Unknown, Verified 07/15/23 10:09) ? RXN BABY - ? HIVES Medication List - Last Reconciled 08/18/23 by Naveen Avitia MD aspirin 81 mg PO DAILY atorvastatin 80 mg PO DAILY esomeprazole magnesium 40 mg PO DAILY lisinopril 5 mg PO DAILY metoprolol succinate ER 50 mg PO DAILY 90 days metoprolol succinate ER 25 mg PO DAILY sertraline 50 mg PO DAILY HPI HPI Comments History of Present Illness Details Lizzy comes for follow-up after recent hospitalization acute chest discomfort and troponin elevation consistent with NSTEMI. Patient had this event after a disagreement with her co-worker and she felt very emotionally upset. She then developed retrosternal chest pain shortness of breath and came to the emergency room. EKG showed transient ST wave changes with elevated troponin. She was subsequently transferred to [facility] for cardiac catheterization. A day prior to this event she had a normal LV ejection fraction. Her cardiac catheterization showed no significant obstructive coronary artery disease. Her echocardiogram at [facility] showed mild LV systolic dysfunction with anterolateral hypokinesis. 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 Patient comes for follow-up today and is very concerned about her recent diagnosis. She was complain of mild chest discomfort still present although this is highly unusual. Patient has not had any recurrent atrial fibrillation. She was started on lisinopril and metoprolol was reduced to 25 mg daily. She remains anxious. [facility] Medical History Paroxysmal atrial fibrillation COVID-19 vaccine series completed Arrhythmia GERD (gastroesophageal reflux disease) Mitral valve prolapse Surgical History History of cardiac radiofrequency ablation H/O colonoscopy History of esophagogastroduodenoscopy (EGD) Family History Mother No problems noted. Father No problems noted. Social History Unable to assess alcohol history related to: Unknown Alcohol intake: current Review of Systems Const Denies chills, Denies fatigue, Denies fever(s), Denies frequent falls, Denies weakness, Denies weight gain and Denies weight loss ENT Denies dizziness Card Denies chest pain, Denies leg edema, Denies lightheadedness, Denies palpitations, Denies dyspnea, Denies dyspnea on exertion, Denies orthopnea and Denies other (loss of consciousness) Resp Denies cough, Denies dyspnea and Denies dyspnea on exertion GI Denies hematochezia and Denies change in stool character Musc Denies abnormal gait, Denies muscle weakness, Denies numbness, Denies radiating pain into limb and Denies tingling Neuro Denies abnormal gait, Denies dizziness, Denies frequent falls, Denies numbness, Denies tingling and Denies weakness Endo Denies fatigue and Denies palpitations Physical Exam Vital Signs: Last Vital Signs Pulse 68 08/18/23 15:21 BP 110/70 08/18/23 15:21 BMI result Body Mass Index 31.0 Const General: cooperative, comfortable, no acute distress, alert, awake and anxious Nutritional Appearance: overweight Orientation/consciousness: patient oriented x3 Limitations: no limitations Neck Neck: Yes trachea midline, Yes supple and Yes no JVD Resp Effort & Inspection: normal respiratory effort Auscultation: clear to auscultation bilaterally Cardio Jugular venous distension: no JVD Palpation: normal PMI Rate: regular rate Rhythm: regular rhythm Heart sounds: S1 normal heart sound present, S2 normal heart sound present, no click, no gallops, no murmurs and no rubs GI Auscultation: normal bowel sounds Neuro General: patient oriented x3 and no focal motor deficits Extrem General: Yes no clubbing, cyanosis or edema Psych Appearance: grossly normal Affect: Anxious affect present Office Procedures EKG Details: EKG shows normal sinus rhythm with Q-wave in lead aVL with T-wave inversions in lead 1 and aVL suggestive of small high anterolateral infarct [id number], Complete Assessment & Plan Assessment & Plan (1) Subsequent non-ST elevation (NSTEMI) myocardial infarction: Code(s): I22.2 - Subsequent non-ST elevation (NSTEMI) myocardial infarction Plan: Patient presents with follow-up after NSTEMI like symptoms and elevated troponins with nonobstructive coronary artery disease by cardiac catheterization. Working diagnosis currently is stress-induced cardiomyopathy although there was focal anterolateral wall motion abnormality on transthoracic echocardiogram done at [facility] and has persistent T-wave inversion high lateral leads. I would like to repeat another limited echocardiogram near future. If his this shows complete normalization of LV systolic function would suggest stress-induced cardiomyopathy AKA takotsubo cardiomyopathy given her clinical scenario. Other possibility includes coronary vaso spasm. If she has stress-induced cardiomyopathy will continue with metoprolol lisinopril as neurohormonal modulation this was discussed with her. She does have nonobstructive CAD and would continue with atorvastatin therapy. If she has persistent wall motion abnormality that would like to treat her with vasodilators therapy with amlodipine with suspicion for coronary vaso spasm. This was discussed with her. (2) Paroxysmal atrial fibrillation: Comment: Status post ablation Code(s): I48.0 - Paroxysmal atrial fibrillation Plan: Paroxysmal atrial fibrillation the past status post ablation. No clinical recurrence at this point time. Continue metoprolol therapy. Avoidance of stimulants was discussed. Stress mitigation strategies were discussed. Patient remains very anxious and should consider increasing her sertraline to help with her emotional reaction. Will follow up in the clinic in 4 weeks time, sooner p.r.n.. Thank you for allowing me to partake in the care Orders: Orders CA echo limited 08/18/23 I22.2 - Subsequent non-ST elevation (NSTEMI) myocardial infarction Medications: New atorvastatin 80 mg PO DAILY 30 tabs 5RF I22.2 - Subsequent non-ST elevation (NSTEMI) myocardial infarction lisinopril 5 mg PO DAILY 30 tabs 5RF I22.2 - Subsequent non-ST elevation (NSTEMI) myocardial infarction Refilled metoprolol succinate ER 50 mg PO DAILY 90 days 90 tabs 3RF I22.2 - Subsequent non-ST elevation (NSTEMI) myocardial infarction Coding Level of Care Code Est Pt Level 4 (23276) Diagnoses Subsequent non-ST elevation (NSTEMI) myocardial infarction I22.2 Paroxysmal atrial fibrillation I48.0 CPT Codes EKG - CPT: 93429-[id number], Complete ([id number])
[2023-08-18 15:21] VITALS: BP 110/70; PULSE 68; BMI 31.0
== END 2023-08-18 16:13 | disposition home or self-care (01) ==
PROVIDERS: PCP Internal Medicine; Referring Provider Internal Medicine; Visit Provider Internal Medicine Cardiovascular Disease
DX: I22.2 Subsequent non-ST elevation (NSTEMI) myocardial infarction (principal); I48.0 Paroxysmal atrial fibrillation
CPT/HCPCS: 93010; 99214

== ENCOUNTER → 2023-08-18 15:07 | Outpatient (BNVA) | payer OTHER, SELFPAY | PROVIDERS: PCP Internal Medicine; Referring Provider Internal Medicine; Visit Provider Internal Medicine Cardiovascular Disease | DX: I22.2 Subsequent non-ST elevation (NSTEMI) myocardial infarction (principal); I48.0 Paroxysmal atrial fibrillation | CPT/HCPCS: 93005 ==

== ENCOUNTER → 2023-08-26 08:50 | Outpatient (REF) | payer OTHER, SELFPAY ==
--- NOTE | 2023-08-26 08:54 | CA_ITS ---
Transthoracic Echocardiogram Patient (Last, First, Middle): Lizzy Ayon M Gender: Female Date of : 1970 Age: 53 Procedure Date: 08/26/2023 Procedure Type: Transthoracic Echocardiogram Location: OP Height: 170.18 cm Weight: 90.27 kg BSA: 2.02 m2 Heart Rate: 60 bpm BP: 118 / 72 mmHg Outside Event Sales Specialist: SB Referring MD: Naveen Avitia MD Symptoms: I22.2 - Subsequent non-ST elevation (NSTEMI) myocardial infarction Study Quality: Adequate ECG Rhythm: Sinus Conclusions: - The left ventricular systolic function is normal. The calculated ejection fraction is 61% by biplane method. Findings Left Ventricle Normal left ventricular cavity size. There is normal left ventricular wall thickness. The left ventricular systolic function is normal. The calculated ejection fraction is 61% by biplane method. There is no evidence of regional wall motion abnormalities. LV peak GLS 18.1%. Venous The inferior vena cava was not well visualized. The inferior vena cava is normal in size. Pericardium/Pleural There is no evidence of pericardial effusion. Prior Study Comparison No significant change compared to prior study dated: 07/14/2023. Measurements 2D Linear Measurements IVSd: 0.90 0.6-0.9/0.6-1.0 cm LVIDd: 5.55 3.9-5.3/4.2-5.9 cm LVIDd Index: 2.75 2.4-3.2/2.2-3.1 cm/m2 LVIDs: 3.86 2.0-3.6 cm LVPWd: 0.81 0.7-1.1 cm LV Mass: 220.50 67-162/88-224 g LV Mass Index: 109.16 43-95/49-115 g/m2 LVOT Diam: 2.30 3.0+(-)1.3 cm 2D Systolic Function EF 4C: 60.70 >55% EF 2C: 62.60 >55% EF BiP: 60.90 >55% LVOT LVOT Diam: 2.30 LVOT Area: 4.15 Tricuspid Valve RA Press: 8.00 Updated in Other Vendor System with Status of Final Louis Mane MD electronically signed on 08/28/2023 3:12:50 PM with status of Final
== END ==
LOC: HO.CARD 08:50
PROVIDERS: PCP Internal Medicine; Visit Provider Internal Medicine Cardiovascular Disease
DX: I22.2 Subsequent non-ST elevation (NSTEMI) myocardial infarction (principal)
CPT/HCPCS: 93308; 93356

== ENCOUNTER → 2023-08-26 08:54 | Outpatient (BNV) | payer OTHER, SELFPAY | PROVIDERS: PCP Internal Medicine; Visit Provider Internal Medicine | DX: I22.2 Subsequent non-ST elevation (NSTEMI) myocardial infarction (principal) | CPT/HCPCS: 93308 ==

== ENCOUNTER 2023-10-06 09:29 | Outpatient (REF) | payer OTHER, SELFPAY ==
--- NOTE | ~2023-10-06 | MM_ITS ---
EXAMINATION: MM SCREENING DIGITAL BREAST TOMOSYNTHESIS, BILATERAL CLINICAL INFORMATION: Screening. Asymptomatic. COMPARISON: Mammography: 07/04/2022, 07/02/2021, 06/07/2020, 02/24/2019, 12/08/2017 Breast MRI 10/22/2018. TECHNIQUE: Digital breast tomosynthesis is performed in both the craniocaudal and mediolateral oblique views along with computer-aided detection (CAD). Synthesized 2D images are generated from the tomosynthesis. FINDINGS: There are scattered areas of fibroglandular density (ACR BI-RADS breast composition Category b). There is a ribbon-shaped biopsy clip abutting a small oval mass posterior upper outer left breast, consistent with biopsy proven fibroadenoma. There are no suspicious masses, suspicious grouped calcifications, or areas of architectural distortion in either breast. The parenchymal pattern is stable from prior exams. There are no skin or axillary abnormalities. MM/MM tomosynthesis screening BI IMPRESSION: No mammographic evidence of malignancy. Stable benign findings as detailed. ASSESSMENT: BI-RADS BI-RADS 2 - Benign Findings RECOMMENDATION: Routine annual mammography screening. 1 year F/U This examination should not preclude the clinical evaluation of a suspicious palpable abnormality. This patient's information was entered into a reminder system with a target due date for their next mammogram.
== END 2023-10-06 09:30 | disposition home or self-care (01) ==
LOC: HO.MAMMO 09:29
PROVIDERS: PCP Internal Medicine; Visit Provider Internal Medicine
DX: Z12.31 Encounter for screening mammogram for malignant neoplasm of breast (principal)
CPT/HCPCS: 77063; 77067

== ENCOUNTER → 2023-10-06 10:00 | Outpatient (BNV) | payer OTHER, SELFPAY | PROVIDERS: PCP Internal Medicine; Visit Provider Radiology Diagnostic Radiology | DX: Z12.31 Encounter for screening mammogram for malignant neoplasm of breast (principal) | CPT/HCPCS: 77063; 77067 ==

== ENCOUNTER 2023-10-23 11:30 | Outpatient (RCR) | payer OTHER, SELFPAY | END 2023-10-26 16:00 | disposition home or self-care (01) | LOC: HO.CR 11:30 | PROVIDERS: PCP Internal Medicine; Visit Provider Nurse Practitioner | DX: I21.4 Non-ST elevation (NSTEMI) myocardial infarction (principal) | CPT/HCPCS: 93798 ==

== ENCOUNTER 2023-11-07 11:16 | Outpatient (AMB) | payer OTHER, SELFPAY ==
[2023-11-07 11:21] VITALS: BP 110/70; PULSE 57; TEMP 37; O2SAT 97; BMI 31.2
--- NOTE | 2023-11-07 11:21 | MHC.OFFWIV ---
Intake Vital Signs 11/07/23 11:21 Height 5 ft 7.5 in Weight 202 lb BMI 31.2 BP 110/70 Blood Pressure Location Lt brachial Position Sitting Pulse 57 Pulse Source Pulse Oximeter Temp 98.6 F Temp Source Oral Pulse Oximetry (%) 97 Oxygen Delivery Method Room Air Intake Visit Reasons: EP Skin Rash Intake Note: Pt is here today c/o itchy rash Rt arm Lt leg x1.5wk Patient Tobacco Use Status: Former Tobacco user Allergies azithromycin [AZITHROMYCIN] Allergy (Intermediate, Verified 11/07/23 11:21) ABDOMINAL PAIN Penicillins [PENICILLINS] Allergy (Unknown, Verified 11/07/23 11:21) ? RXN BABY - ? HIVES HPI HPI Comments History of Present Illness Details 53-year-old female presents for rash to the right arm. Present for several days now denies fevers chills new medications soaps or lotions. Has tried steroid cream at home without relief PFSH Medical History Paroxysmal atrial fibrillation COVID-19 vaccine series completed Arrhythmia GERD (gastroesophageal reflux disease) Mitral valve prolapse Surgical History History of cardiac radiofrequency ablation H/O colonoscopy History of esophagogastroduodenoscopy (EGD) Family History Mother No problems noted. Father No problems noted. Social History Unable to assess alcohol history related to: Unknown Alcohol intake: current Patient Tobacco Use Status: Former Tobacco user Review of Systems Skin/Breast Reports rash Physical Exam Vital Signs: Last Vital Signs Temp 98.6 F 11/07/23 11:21 Pulse 57 11/07/23 11:21 BP 110/70 11/07/23 11:21 Pulse Ox 97 11/07/23 11:21 Oxygen Delivery Method Room Air 11/07/23 11:21 BMI result Body Mass Index 31.2 Const General: cooperative, healthy appearing, no acute distress and alert Orientation/consciousness: patient oriented x3 Limitations: no limitations HEENT Head: Yes normal to inspection Ears: hearing grossly normal bilaterally General nose exam: Normal external nose present Resp Effort & Inspection: normal respiratory effort and able to speak in complete sentences Cardio Rate: regular rate Skin Other: Maculopapular rash on an erythematous base no crusting or scaling located on the right outer forearm General skin exam: no rashes or lesions noted Neuro General: patient oriented x3 Extrem General: Yes normal to inspection Assessment & Plan Assessment & Plan (1) Rash: Code(s): R21 - Rash and other nonspecific skin eruption Plan: Unclear etiology of rash however given pruritus will trial steroid cream. Given unsuccessful use the steroid cream at home will also add on systemic steroids. Patient will try these for 3 days. Also consideration could be scabies as patient has had this in the previous. Will prescribe permethrin cream. Should steroid treatment prove unsuccessful patient will trial permethrin. If not recommend Dermatology referral Medications: New permethrin 5% apply second treatment 14 days after first treatment if live lice remain 1 appl topical Q14D 60 grams 0RF 2 doses prednisone 40 mg (2 x 20 mg) PO DAILY 3 days 6 tabs 0RF fluocinonide 0.1% 1 appl topical BID 3 days PRN 30 grams 0RF rash Coding Level of Care Code Est Pt Level 2 (46897) Diagnoses Rash R21
== END 2023-11-07 12:21 | disposition home or self-care (01) ==
PROVIDERS: PCP Internal Medicine; Visit Provider Physician Assistant
DX: R21 Rash and other nonspecific skin eruption (principal)
CPT/HCPCS: 99051; 99212

== ENCOUNTER 2024-02-11 14:02 | Outpatient (AMB) | payer OTHER, SELFPAY ==
[2024-02-11 14:17] VITALS: BP 120/80; PULSE 61; BMI 30.6
--- NOTE | 2024-02-11 14:17 | A.OFFVIS_ITS ---
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 RXN BABY - ? HIVES Medication List - Last Reconciled 02/11/24 by Naveen Avitia MD esomeprazole magnesium 40 mg PO DAILY fluocinonide 0.1% 1 appl topical BID PRN 3 days losartan 25 mg PO DAILY metoprolol succinate ER 50 mg PO DAILY 90 days permethrin 5% 1 appl topical Q14D 2 doses sertraline 50 mg PO DAILY HPI Comments Details: Lizzy comes for follow up. Still very anxious about her event that happened last fall. She is worried about the EKG being abnormal. Echocardiogram done in August showed complete normalization for LV systolic function. EKG done today shows normal EKG. No prolonged palpitation irregular heartbeat. She is trying to avoid stressful situations. Denies any exertional chest pain or shortness of breath. No heart failure symptoms. [facility] Medical History (Updated 02/11/24 @ 14:53 by Naveen Avitia MD) Paroxysmal atrial fibrillation COVID-19 vaccine series completed Arrhythmia GERD (gastroesophageal reflux disease) Mitral valve prolapse Surgical History History of cardiac radiofrequency ablation H/O colonoscopy History of esophagogastroduodenoscopy (EGD) Family History Mother No problems noted. Father No problems noted. Social History Unable to assess alcohol history related to: Unknown Alcohol intake: current Patient Tobacco Use Status: Former Tobacco user Review of Systems Const Denies chills, Denies fatigue, Denies fever(s), Denies frequent falls, Denies weakness, Denies weight gain and Denies weight loss ENT Denies dizziness Card Denies chest pain, Denies leg edema, Denies lightheadedness, Denies palpitations, Denies dyspnea, Denies dyspnea on exertion, Denies orthopnea and Denies other (loss of consciousness) Resp Denies cough, Denies dyspnea and Denies dyspnea on exertion GI Denies hematochezia and Denies change in stool character Musc Denies abnormal gait, Denies muscle weakness, Denies numbness, Denies radiating pain into limb and Denies tingling Neuro Denies abnormal gait, Denies dizziness, Denies frequent falls, Denies numbness, Denies tingling and Denies weakness Endo Denies fatigue and Denies palpitations Physical Exam Vital Signs: Last Vital Signs Pulse 61 02/11/24 14:17 BP 120/80 02/11/24 14:17 BMI result Body Mass Index 30.6 Const General: cooperative, comfortable, no acute distress, alert, awake and anxious Nutritional Appearance: overweight Orientation/consciousness: patient oriented x3 Limitations: no limitations Neck Neck: Yes trachea midline, Yes supple and Yes no JVD Resp Effort & Inspection: normal respiratory effort Auscultation: clear to auscultation bilaterally Cardio Jugular venous distension: no JVD Palpation: normal PMI Rate: regular rate Rhythm: regular rhythm Heart sounds: S1 normal heart sound present, S2 normal heart sound present, no click, no gallops, no murmurs and no rubs GI Auscultation: normal bowel sounds Neuro General: patient oriented x3 and no focal motor deficits Extrem General: Yes no clubbing, cyanosis or edema Psych Appearance: grossly normal Affect: Anxious affect present Office Procedures EKG Details: EKG shows normal sinus rhythm normal EKG which has normalized now. 35325-[id number], Complete Assessment & Plan Assessment & Plan (1) Takotsubo syndrome: Code(s): I51.81 - Takotsubo syndrome Category: Medical Plan: Patient in fall had stress-induced cardiomyopathy consistent with elevated troponins and then eventual findings consistent with stress-induced cardiomyopathy. Pathophysiology of takotsubo cardiomyopathy was discussed with her. Continue losartan and metoprolol therapy as neurohormonal modulator. LV systolic function is completely normalized. EKGs completely normalized. Discussed with her. She felt the relieved. Stress mitigation strategies to be pursued. Avoidance of stimulants as well as cardiotoxic agent was discussed. (2) Paroxysmal atrial fibrillation: Comment: Status post ablation Code(s): I48.0 - Paroxysmal atrial fibrillation Category: Medical Plan: Prior history of paroxysmal atrial fibrillation status post ablation. Currently doing well. Continue metoprolol therapy. No indication for anticoagulation therapy at this point time. Continue to avoid stimulants. Advised to call me with any new symptoms. No indication for antiarrhythmic drug therapy. Continue participate in aggressive weight loss program as well as exercise program. Will follow up in the clinic in 1 year's time, sooner p.r.n.. Thank you for allowing me to partake in the care Medications: Discontinued atorvastatin Discontinued Reason: Patient no longer taking 80 mg PO DAILY 30 tabs 5RF I22.2 - Subsequent non-ST elevation (NSTEMI) myocardial infarction Coding Level of Care Code Est Pt Level 4 (51849) Diagnoses Takotsubo syndrome I51.81 Paroxysmal atrial fibrillation I48.0 CPT Codes EKG - CPT: 59607-Kljfokbwskxkivfga, Complete ([id number])
== END 2024-02-11 14:49 | disposition home or self-care (01) ==
PROVIDERS: PCP Internal Medicine; Visit Provider Internal Medicine Cardiovascular Disease
DX: I51.81 Takotsubo syndrome (principal); I48.0 Paroxysmal atrial fibrillation
CPT/HCPCS: 93010; 99214

== ENCOUNTER → 2024-02-11 14:02 | Outpatient (BNVA) | payer OTHER, SELFPAY | PROVIDERS: PCP Internal Medicine; Visit Provider Internal Medicine Cardiovascular Disease | DX: I51.81 Takotsubo syndrome (principal); I48.0 Paroxysmal atrial fibrillation; Z79.899 Other long term (current) drug therapy | CPT/HCPCS: 93005 ==

== ENCOUNTER 2024-06-30 10:01 | Outpatient (AMB) | payer OTHER, SELFPAY ==
--- NOTE | 2024-06-30 10:08 | AM.OFFWIN_ITS ---
Intake Vital Signs 06/30/24 10:12 Height 5 ft 7.5 in Weight 199 lb BMI 30.7 BP 122/90 H Blood Pressure Location Lt brachial Position Sitting Pulse 56 Pulse Source Pulse Oximeter Pulse Oximetry (%) 98 Oxygen Delivery Method Room Air Intake Visit Reasons: EP fell left ankle swollen & pain rt fibular Intake Note: Patient here because she fell down stair at home and is now having left ankle swelling and right pain in fibular area Patient Tobacco Use Status: Former Tobacco user Allergies azithromycin [AZITHROMYCIN] Allergy (Intermediate, Verified 06/30/24 10:13) ABDOMINAL PAIN Penicillins [PENICILLINS] Allergy (Unknown, Verified 06/30/24 10:13) ? RXN BABY - ? HIVES Do you need a note to return to daycare/school/sports/work: No HPI EP fell left ankle swollen & pain rt fibular HPI Details This note is constructed using voice recognition software. While every effort has been made to ensure accuracy, stock handler errors may have been included. The patient is a 53 year old female who presents to the clinic today with right knee and left ankle and foot pain after a fall sustained yesterday when she got home from work. She notes that she had a plant that had fallen over on her front steps, and when she went to go correct it, she completely missed the step, landing hard on her right leg, and rolling her left ankle. She notes that the lateral side of her right knee is painful over the fibula, and that when she puts pressure on that leg standing, she has some increased pain. She also notes that the pain is along the top of her left foot as well as the lateral aspect of her ankle. She tried NSAIDs at home which helped slightly with the pain. She did not applied ice to the area. [facility] Medical History (Updated 02/11/24 @ 14:53 by Naveen Avitia MD) Paroxysmal atrial fibrillation COVID-19 vaccine series completed Arrhythmia GERD (gastroesophageal reflux disease) Mitral valve prolapse Surgical History History of cardiac radiofrequency ablation H/O colonoscopy History of esophagogastroduodenoscopy (EGD) Family History Mother No problems noted. Father No problems noted. Social History Unable to assess alcohol history related to: Unknown Alcohol intake: current Patient Tobacco Use Status: Former Tobacco user Review of Systems Const All systems reviewed & are unremarkable except as noted in HPI and below Physical Exam Vital Signs: Last Vital Signs Pulse 56 06/30/24 10:12 BP 122/90 H 06/30/24 10:12 Pulse Ox 98 06/30/24 10:12 Oxygen Delivery Method Room Air 06/30/24 10:12 BMI result Body Mass Index 30.7 Const General: cooperative, healthy appearing, comfortable, no acute distress and well developed Orientation/consciousness: patient oriented x3 Limitations: no limitations Resp Effort & Inspection: normal respiratory effort and able to speak in complete sentences Skin Other: 5 x 5 cm area of abrasion over the right patella, no additional erythema or warmth or discharge in the area. General skin exam: no rashes or lesions noted Neuro General: patient oriented x3 Extrem Other: Right knee full range of motion, tender to palpation along lateral joint line, with mild edema. Left ankle full range of motion. Tender to palpation posterior lateral malleolus with mild edema. Tenderness to proximal metatarsal 3-4 dorsal aspect with mild edema. No erythema or warmth to any joint. Distal neurovascular exam intact bilaterally. Mildly antalgic gait. Results Reviewed Results Reviewed: XR images contemporaneously read by me with findings noted partial dorsal avulsion navicular fracture of the left. The remaining of her x-rays were unremarkable Assessment & Plan Assessment & Plan (1) Navicular fracture, foot: Code(s): S92.253A - Displaced fracture of navicular [scaphoid] of unspecified foot, initial encounter for closed fracture Qualifiers: Encounter type: initial encounter Fracture type: closed Fracture alignment: nondisplaced Laterality: left Qualified Code(s): S92.255A - Nondisplaced fracture of navicular [scaphoid] of left foot, initial encounter for closed fracture Plan: Imaging consistent with partial dorsal avulsion fracture navicular. Patient placed in short boot for offloading of weight-bearing. Advised patient to continue to wear this for the next several weeks at minimum, but to follow up with Orthopedics. Referral placed to facilitate. She has a longstanding established relationship with [facility], so we elected to place referral there. Advised rest, letter provided for today to remain out of work. She may return to work tomorrow with intermittent sitting and standing, ice, elevation, and wearing of her immobilizer boot. Plan See above for full details and plan. Orders: Orders XR ankle LT 2V Today M25.579 - Pain in unspecified ankle and joints of unspecified foot XR foot LT 2V Today M79.673 - Pain in unspecified foot Referrals Orthopedics Referral S92.255A - Nondisplaced fracture of navicular [scaphoid] of left foot, initial encounter for closed fracture Coding Level of Care Code Est Pt Level 4 (83424) Diagnoses Closed nondisplaced fracture of navicular bone of left foot, initial encounter S92.255A Encounter type: initial encounter Fracture type: closed Fracture alignment: nondisplaced Laterality: left
[2024-06-30 10:12] VITALS: BP 122/90; PULSE 56; O2SAT 98; BMI 30.7
== END 2024-06-30 11:35 | disposition home or self-care (01) ==
PROVIDERS: PCP Internal Medicine; Visit Provider Registered Nurse
DX: S92.255A Nondisplaced fracture of navicular [scaphoid] of left foot, initial encounter for closed fracture (principal)

== ENCOUNTER → 2024-06-30 10:01 | Outpatient (BNVA) | payer OTHER, SELFPAY | PROVIDERS: PCP Internal Medicine; Visit Provider Registered Nurse ==

== ENCOUNTER 2024-06-30 10:25 | Outpatient (REF) | payer OTHER, SELFPAY ==
--- NOTE | ~2024-06-30 | XR_ITS ---
EXAMINATION: X-ray series of the left foot and ankle and right knee CLINICAL INFORMATION: Pain over proximal 3rd and 4th metatarsals after fall. Pain posterior malleolus. Pain over fibula pain in right knee COMPARISON: None. TECHNIQUE: 3 views of the left foot and 2 additional views of the left ankle. 2 views of the right knee FINDINGS: Right ankle and foot: There is a small ossific fragment along the dorsal aspect of the navicular having the appearance of a small avulsion fracture age indeterminate but possibly acute.. Ossicle thought to be less likely. The remaining bones and joints and soft tissues are normal. Right knee: Mild osteoarthritis involving all compartments. No effusion. No fracture or acute abnormality. XR/XR knee RT 2V IMPRESSION: 1. Right ankle and foot: Small ossific fragment along the dorsal aspect of the navicular having the appearance of a small avulsion fracture age indeterminate but suspect acute 2. Mild osteoarthritis of the right knee. Electronically signed by: Yusuf Ho MD 06/30/2024 11:50 AM EDT
--- NOTE | ~2024-06-30 | XR_ITS ---
EXAMINATION: X-ray series of the left foot and ankle and right knee CLINICAL INFORMATION: Pain over proximal 3rd and 4th metatarsals after fall. Pain posterior malleolus. Pain over fibula pain in right knee COMPARISON: None. TECHNIQUE: 3 views of the left foot and 2 additional views of the left ankle. 2 views of the right knee FINDINGS: Right ankle and foot: There is a small ossific fragment along the dorsal aspect of the navicular having the appearance of a small avulsion fracture age indeterminate but possibly acute.. Ossicle thought to be less likely. The remaining bones and joints and soft tissues are normal. Right knee: Mild osteoarthritis involving all compartments. No effusion. No fracture or acute abnormality. XR/XR foot LT 2V IMPRESSION: 1. Right ankle and foot: Small ossific fragment along the dorsal aspect of the navicular having the appearance of a small avulsion fracture age indeterminate but suspect acute 2. Mild osteoarthritis of the right knee. Electronically signed by: Yusuf Ho MD 06/30/2024 11:50 AM EDT
--- NOTE | ~2024-06-30 | XR_ITS ---
EXAMINATION: X-ray series of the left foot and ankle and right knee CLINICAL INFORMATION: Pain over proximal 3rd and 4th metatarsals after fall. Pain posterior malleolus. Pain over fibula pain in right knee COMPARISON: None. TECHNIQUE: 3 views of the left foot and 2 additional views of the left ankle. 2 views of the right knee FINDINGS: Right ankle and foot: There is a small ossific fragment along the dorsal aspect of the navicular having the appearance of a small avulsion fracture age indeterminate but possibly acute.. Ossicle thought to be less likely. The remaining bones and joints and soft tissues are normal. Right knee: Mild osteoarthritis involving all compartments. No effusion. No fracture or acute abnormality. XR/XR ankle LT 2V IMPRESSION: 1. Right ankle and foot: Small ossific fragment along the dorsal aspect of the navicular having the appearance of a small avulsion fracture age indeterminate but suspect acute 2. Mild osteoarthritis of the right knee. Electronically signed by: Yusuf Ho MD 06/30/2024 11:50 AM EDT
== END 2024-06-30 10:26 | disposition home or self-care (01) ==
LOC: HO.HMGCX 10:25
PROVIDERS: PCP Internal Medicine; Visit Provider Registered Nurse
DX: S92.255A Nondisplaced fracture of navicular [scaphoid] of left foot, initial encounter for closed fracture (principal); M25.572 Pain in left ankle and joints of left foot; M25.562 Pain in left knee
CPT/HCPCS: 73560; 73600; 73620

== ENCOUNTER 2024-09-30 11:41 | Outpatient (REF) | payer OTHER, SELFPAY ==
[2024-09-30 11:52] LABS: MANUAL DIFF FLAG NO
[2024-09-30 12:42] LABS: Basophils Percent Auto 0.4 % (0-2); Eosinophils Absolute Auto 0.3 X10*3/uL (0.0-0.4); Eosinophils Percent Auto 3.5 % (0-4); Hematocrit 40.9 % (37.0-47.0); Hemoglobin 13.7 g/dl (12.0-16.0); Imm Gran Abs Auto 0.04 X10*3/uL (0.00-0.03); Imm Gran Pct Auto 0.4 % (0.0-0.4); Lymphocytes Absolute Auto 1.9 X10*3/uL (1.2-4.9); Lymphocytes Percent Auto 18.9 % (20-40); Mean Corpuscular HGB Conc 33.5 g/dl (31.0-35.0); Mean Corpuscular Hemoglobin 29.5 pg (27.0-33.0); Mean Corpuscular Volume 88.1 fL (80.0-98.0); Mean Platelet Volume 10.3 fL (9.4-12.3); Monocytes Absolute Auto 0.5 X10*3/uL (0.1-1.2); Monocytes Percent Auto 4.8 % (2-11); Neutrophils Absolute Auto 7.1 x10*3/uL (2.0-8.3); Platelet Count 213 X10*3/uL (160-400); Red Blood Count 4.64 X10*6/uL (4.20-5.50); Red Cell Distribution Width 13.2 % (11.0-16.0); White Blood Count 9.8 X10*3/uL (4.8-10.8)
[2024-09-30 13:02] LABS: Estimated Average Glucose 100 mg/dL; Hemoglobin A1C 117.7223 umol/L; Hemoglobin A1c % 5.1 % (<6.0); Total Hemoglobin (HGBA1C) 3601.0192 umol/L
[2024-09-30 13:31] LABS: Alanine Aminotransferase 74 U/L (0-31); Albumin Level 4.4 g/dL (3.5-5.0); Alkaline Phosphatase 74 U/L (39-117); Anion Gap 11 (12-20); Aspartate Amino Transferase 50 U/L (5-31); Bilirubin Total 0.6 mg/dL (0.0-1.0); Blood Urea Nitrogen 13 mg/dL (9-16); Calcium 9.2 mg/dL (8.4-10.2); Carbon Dioxide 25 mmol/L (22-29); Chloride 111 mmol/L (96-108); Cholesterol 252 mg/dL (<200); Estimated Glomerular Filt Rate > 60; Glucose Random 85 mg/dL (60-115); HDL Cholesterol 52 mg/dL (>40); LDL Cholesterol Calculated 178 mg/dL (<100); Potassium 4.1 mmol/L (3.3-5.1); Sodium 143 mmol/L (135-145); Total Protein 7.2 g/dL (6.5-8.0); Triglycerides 110 mg/dL (<150)
[2024-09-30 13:37] LABS: Free T4 (Free Thyroxine) 0.99 ng/dL (0.71-1.85); Thyroid Stimulating Hormone 0.87 uIU/mL (0.32-4.0)
== END 2024-09-30 11:42 | disposition home or self-care (01) ==
LOC: HO.LAB 11:41
PROVIDERS: PCP Internal Medicine; Visit Provider Internal Medicine
DX: I51.81 Takotsubo syndrome (principal); R73.01 Impaired fasting glucose; R03.0 Elevated blood-pressure reading, without diagnosis of hypertension
CPT/HCPCS: 36415; 80053; 80061; 83036; 84439; 84443; 85025

== ENCOUNTER 2024-10-12 08:41 | Outpatient (REF) | payer OTHER, SELFPAY ==
--- NOTE | ~2024-10-12 | MM_ITS ---
EXAMINATION: MM SCREENING DIGITAL BREAST TOMOSYNTHESIS, BILATERAL CLINICAL INFORMATION: Screening. Asymptomatic. COMPARISON: Mammography: Comparison is made with available priors TECHNIQUE: Digital breast mammography with tomosynthesis is performed in both the craniocaudal and mediolateral oblique views along with computer-aided detection (CAD). FINDINGS: There are scattered areas of fibroglandular density (ACR BI-RADS breast composition Category b). Marker clip in the upper outer left breast from previous benign needle core biopsy fibroadenoma. There are no significant masses, abnormal calcifications, or other abnormalities. MM/MM tomosynthesis screening BI IMPRESSION: No mammographic evidence of malignancy. ASSESSMENT: BI-RADS BI-RADS 2 - Benign Findings RECOMMENDATION: Routine annual mammography screening. 1 year F/U This examination should not preclude the clinical evaluation of a suspicious palpable abnormality. This patient's information was entered into a reminder system with a target due date for their next mammogram. Electronically signed by: Pam Lea DO 10/14/2024 01:27 PM KAREN
== END 2024-10-12 08:42 | disposition home or self-care (01) ==
LOC: HO.MAMMO 08:41
PROVIDERS: Visit Provider Internal Medicine
DX: Z12.31 Encounter for screening mammogram for malignant neoplasm of breast (principal)
CPT/HCPCS: 77063; 77067

== ENCOUNTER → 2024-10-12 13:30 | Outpatient (BNV) | payer OTHER, SELFPAY | PROVIDERS: Visit Provider Internal Medicine | DX: Z12.31 Encounter for screening mammogram for malignant neoplasm of breast (principal) | CPT/HCPCS: 77063; 77067 ==

== ENCOUNTER 2025-01-04 06:38 | Outpatient (REF) | payer OTHER, SELFPAY ==
--- OUTSIDE RECORDS SUMMARY | 2025-01-04 06:42 | XMS_ITS ---
Author Organization [facility] Address [address] [place] [address] Care Team Providers Care Director Systems Name Role Phone John IGLESIAS, Jewel Primary Care Provider Unavaila robbie Matias Jr, Rebel Palomo [phone] REASON FOR VISIT GERD Encounters Encounter Location Date Provider Diagnosis [facility] [address] [place] [address] 10/06/2024 Rebel Matias Jr Plan Of Treatment Next Appt Details Provider Name:Rebel raza Jr, 01/19/2025 03:15:00 PM, [address] [place] [address], [address], [place], [address], Progress Notes * PARMINDER YANG MDOB:[birth year] (54 yo F)Acc No.[id number]:10/06/2024 Progress Notes Patient:?PARMINDER YANG Provider:?Rebel Matias MD :1970???Age:54 Y???Sex:Female D ate:10/06/2024 Address:[address] [place] [address] Pcp:Jewel Lopez MD Subjective: * Chief Complaints: * ???1. GERD. * Medical History:? Objective: * Vitals:? Assessment: Plan: * Treatment: * * The named appointment provid er may or may not be the originator of this progress note, and it is not deemed complete until electronically signed by the appointment provider. Sign off status: Pending * Provider:?Rebel Matias MD Date:?0 10/06/2024 Generated for Keo coulter/Mamadou/Jose F on:?01/04/2025 06:42 AM EDT
--- OUTSIDE RECORDS SUMMARY | 2025-01-04 06:42 | XMS_ITS | Patient Health Record ---
Author Organization [facility] Address [address] [place] [address] Care Team Providers Care Major Appliance Assembly Supervisor Name Role Phone Jewel Lopez MD Primary Care Provider Miriam Matias Jr, Rebel Palomo [phone] Allergies Allergen (clinical drug ingredient) Drug/Non Drug Allergy documented on EMR Reaction Allergy Type Onset Date Status Penicillin Unknown Drug Allergy Active azithromycin Zithromax Z-Paras Unknown Drug Allergy Active Reason For Referral No Information Medications Medication SIG (Take, Route, Frequency, Duration) Notes Start Date End Date Status Esomeprazole Magnesium 40 MG TAKE 1 CAPSULE BY MOUTH EVERY DAY for 90 Active Sertraline HCl 50 MG Oral for 90 Active Ibuprofen PRN Active Metoprolol Succinate ER 50 MG Orally Active Immunizations Vaccine Route Administration Date Status Comme nts Influenza Unknown 07/04/2020 Administered Influenza Unknown 05/22/2022 Administered Problems Problem Type SNOMED Code ICD Code Onset Dates Problem Status W/U Status Risk Notes Problem 120289485 Colon cancer screening (Z12.11) Active confirmed Problem 64408516 Rectal bleeding (K62.5) Active confirmed Problem 65807458 Diarrhea (R19.7) Active confirmed Problem 969140280 Change in bowel habits (R19.4) Active confirmed Problem 576534257 Gastroesophageal reflux disease without esophagitis (K21.9) Active confirmed Encounters Encounter Location Date Provider Diagnosis [facility] [address] [place] [address] 10/05/2024 Rebel Matias Jr Plan Of Treatment Pending Test Test Name Order Date CLOSTRIDIUM DIFF TOXIN A&B (C DIFF) 06/23 STOOL WBC 2016 OVA & PARASITES (O&P) 2016 CULTURE, STOOL 2016 Future Test Test Name Order Date COLONOSCOPY 09/03/2016 UPPER GI ENDOSCOPY 02/06/2021 COLONOSCOPY 02/06/2021 Next Appt Details Provider Name:Rebel Audrey raza Jr, 01/19/2025 03:15:00 PM, [address] [facility], [address], [place], [address], Insurance Providers Payer Name Payer Address Payer Phone Subscriber Number Group Number Insured Name Patient Relationship to Insured Coverage Start Date Coverage End Date [employer] [place] [address] [address] [place] [address] [id number] PARMINDER GARDUNO Self - patient is the insured Medical (General) History Medical History History ICD Code Gastroesophageal reflux dise ase, upper endoscopy 05/11, no H. pylori or Morejon's esophagus, benign nodule sinusitis deviated septum Atrial fibrillation mitral valve prolapse Colonoscopy 05/11, normal, pr evious history of colon polyp 2017, ten-year followup Surgical History Surgery Date(Month/Year) Caesarean section afib ablation 07/29/2016 breast biopsy-left 09/02/2016
--- OUTSIDE RECORDS SUMMARY | 2025-01-04 06:42 | XMS_ITS | Clinical Summary ---
Author Organization [facility] Address [address] [place] [id number] Phone Care Team Providers Care Manager Studio Name Role Phone Jewel Lopez MD Primary Care Provider [phone] Allergies Active Allergy Reactions Criticality Noted Date Comments Azithromycin GI Upset 05/24/2021 Lisinopril Cough 12/14/2023 Penicillins Unknown 09/15/2017 Medications Medication Sig Dispensed Refills Start Date End Date Status metoprolol succinate (TOPROL-XL) 50 MG 24 hr tabletIndications:1 tablet daily Take 50 mg by mouth daily. Active esomeprazole (NEXIUM) 40 MG capsule Take 40 capsules by mouth daily. 1 Active clobetasol (TEMOVATE) 0.05 % cream Apply 1 application. topically 2 (two) times a day as needed. 2 Active cholecalciferol, vitamin D3, (VITAMIN D3 ORAL)Indications:pt will next time, not sure of dose Take 3 gummies once daily Indications: pt will next time, not sure of dose Active triamcinolone acetonide 0.1 % cream Apply 1 Application topically 2 (two) times a day as needed. 4 Active sertraline (ZOLOFT) 50 MG tabletIndications:A nxiety TAKE 1 TABLET BY MOUTH EVERY DAY 30 tablet 11 4 Active semaglutide, weight loss, (WEGOVY) 0.25 mg/0.5 mL subcutaneous pen injectionIndication s:Class 1 obesity due to excess calories without serious comorbidity with body mass index (BMI) of 32.0 to 32.9 in adult,Essential hypertension,Pure hypercholesterolemi a,Impaired fasting glucose Inject 0.5 mL (0.25 mg total) under the skin every 7 days. 2 mL 1 5 Active LORazepam (ATIVAN) 0.5 MG tabletIndications:A nxiety Take 1 tablet (0.5 mg total) by mouth 2 (two) times a day as needed for anxiety. 16 tablet 5 Active losartan (COZAAR) 25 MG tabletIndications:T akotsubo cardiomyopathy TAKE 1 TABLET (25 MG TOTAL) BY MOUTH DAILY. 90 tablet 2 5 Active losartan (COZAAR) 25 MG tabletIndications:T akotsubo cardiomyopathy Take 1 tablet (25 mg total) by mouth daily. 90 tablet 3 4 12/08/19 25 Discontinued Active Problems Problem Noted Date Diagnosed Date MVP (mitral valve prolapse) 12/24/2019 PAC (premature atrial contraction) 12/24/2019 PAF (paroxysmal atrial fibrillation) 12/24/2019 PVCs (premature ventricular contractions) 2019 SVT (supraventricular tachycardia) 12/24/2019 Acute upper respiratory infection 12/23/2019 Assessment & Plan (12/23/2019 11:06 AM EDT): Persisting upper respiratory infection, not tested for CO VID 19 virus, purulent nasal discharge, nasal congestion, positive rhonchi. On the whole she appears to be getting better but still symptomatic. To facilitate convalescence, doxycycline 100 mg p.o. twice daily x7 days. Take at least 5 days. Patient will continue to isolate herself until she is symptom free. 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 Patient did not require a work note. A virtual visit was used during the COVID-[address] of an in-person visit. I personally spent 20 minutes with the patient during this real-time interactive virtual clinical encounter, which was conducted using telephone-only technology, and >50% of which was devoted to counseling and coordinating care for the above issues. Consent for virtual care, including informing the patient that insurance will be billed, was discussed at the time of scheduling. Hyperlipidemia 01/15/2018 Encounters Date Type Department Care Team Description 12/07/2024 Cheryl [facility] Internal Medicine [address] [facility] [address] Jewel Lopez MD Medication Refill 10/21/2024 Telephone [facility] Internal [facility] [address] [place] [address] Jewel Lopez MD fmla paperwork 10/19/2024 Orders Only [facility] Internal [facility] [address] [place] [address] ProviderLatisha MD 10/17/2024 Refill [facility] Internal [facility] [address] [place] [address] Jewel Lopez MD Medication Refill 10/07/2024 Orders Only [facility] [address] [place] [address] ProviderLatisha MD 10/07/2024 Telephone [facility] Internal [facility] [address] [place] [address] Jewel Lopez MD Medication Question 10/06/2024 4:00 PM EST Office Visit [facility] [address] [place] [address] Jewel Lopez MD Essential hypertension (Primary Dx); Need for hepatitis B screening test; Need for hepatitis C screening test; Screening for human immunodeficiency virus; Class 1 obesity due to excess calories without serious comorbidity with body mass index (BMI) of 32.0 to 32.9 in adult; Liver function abnormality; Pure hypercholesterolemia 10/06/2024 Refill [facility] Internal [facility] [address] [facility] [place] [address] Jewel Lopez MD Med Change Request from Last 3 Months Immunizations Name Administration Dates Next Due COVID-19 (Pre-07/13) Pfizer Vaccine, mRNA, PF 09/28/2020,09/07/2020 Influenza Quadrivalent MDCK Preservative Free IM 07/02/2018 Influenza Quadrivalent Prese rvative Free IM 07/08/2023,07/08/2022,07/19/2021,2019,07/06/2019 Influenza Quadrivalent w/ Preservative IM 07/03/2017 Influenza Trivalent Preserva tive Free IM 06/22/2024,05/28/2015 Influenza Trivalent w/ Prese rvative IM 07/04/2020,07/22/2016 Td, unspecified formulation 06/18/2010 Tdap 06/15/2021 Family History Medical History Relation Comments Acute myelogenous leukemia Brother 1 Dementia Father Hypertension Father Cancer Mother Pancreatic cancer Mother Cancer Sibling Breast cancer Sister Relation Status Comments Brother 1 Alive Brother 2 Alive Daughter Alive Father (Age 87) Mother (Age 75) Sibling Alive Sister Alive BREAST CANCER AT AGE 62 Son Alive Social History Tobacco Use Types Packs/Day Years Used Date Smoking Tobacco: Former Cigarettes 0.3 15 0 05/24/1992 - 05/24/2007 Smokeless Tobacco: Never Tobacco Cessation:Counseling Given: Not Answered Comments:QUIT 2006 Alcohol Use Standard Drinks/Week Comments Yes 8 (1 standard drink = 0.6 oz pur e alcohol) weekends, 3-4 drinks Child or Family Care Answer Date Record ed Do you have problems with on e of the following making it difficult for you to work, study, or receive health care? No 12/14/2023 Education Answer Date Recorded Are you interested in help w ith more adult education (for example, completing high school, GED, job training, learning the Cam[place] language, technical skills, or developing parenting skills)? No 12/14/2023 Are you concerned about learning? Not on file 12/14/2023 No 12/14/2023 Yes 12/14/2023 Food Answer Date Recorded Within the past 6 months we worried whether our food would run out before we got money to buy more. Never True 12/14/2023 Within the past 6 months the food we bought just didn't last and we didn't have enough money to get more. Never True Residential Stability Answer Date Recor ded What is your housing situation today? I have jonatan sing 12/14/2023 How many times have you move d in the past 12 months? Zero (I did not move) 12/14/2023 Paying for Meds Answer Date Recorded Do you have trouble paying for medicines? No 12/14/2023 Paying Utility Bills Answer Date Record ed Do you have trouble paying your heating or elect ricity bill? No 12/14/2023 Transportation Answer Date Recorded Has the lack of transportati on kept you from medical appointments or from getting medications? No 12/14/2023 Unemployment Answer Date Recorded Are you currently unemployed or working on a part-time or temporary basis, and looking for work? No 12/11/2022 Digital Access Answer Date Recorded No 12/14/2023 Yes 12/14/2023 Do you have reliable internet access at home? Ye s 12/14/2023 Do you have a device (e.g., phone, tablet, computer) with a working camera? Yes 12/14/2023 Intimate Partner Violence Answer Date R ecorded Denied Basic Needs Not on file 12/14/2023 In the past 12 months have y ou been in a relationship with a person who hurts, threatens, or tries to control you? No 12/14/2023 Worried food would run out Not on file 12/13 In the past 12 months have y ou been in a relationship with a person who hurts, threatens, or tries to control you? No 12/14/2023 Sex and Gender Information Value Date Recorded Sex Assigned at Not on file Gender Identity Not on file Sexual Orientation Not on file Last Filed Vital Signs Vital Sign Reading Time Taken Comments Blood Pressure 145/80 10/06/2024 3:44 PM EST Pulse 66 10/06/2024 3:44 PM EST Temperature 36.3 ??C (97.4 ??F) 10/06/2024 3:44 PM ES T Respiratory Rate 20 10/06/2024 3:44 PM EST Oxygen Saturation 98% 10/06/2024 3:44 PM EST Inhaled Oxygen Concentration - - Weight 94.1 kg (207 lb 6.4 oz) 10/06/2024 3:44 P M EST Height 169.8 cm (5' 6.85 ) 10/06/2024 3:44 PM ES T Body Mass Index 32.63 10/06/2024 3:44 PM EST Plan of Treatment Upcoming Encounters Date Type Department Care Team (Late st Contact Info) Description 01/13/2025 4:00 PM EDT Appointment [facility] Internal Medicine [address] [facility] [place] [address] Jewel Lopez MD [address] [place] [address] [email or web address] Health Maintenance Due Date Last Done Comments HEPATITIS C SCREENING 1990 HIV ONE-TIME SCREENING (18-65 YEARS) 1990 COLOGUARD 2017 FIT TEST 2017 FOBT 2017 SIGMOIDOSCOPY 2017 VIRTUAL COLONOSCOPY 2017 PNEUMOCOCCAL VACCINES (50+ years) (1 of 1 - PCV) 2022 ZOSTER VACCINES (1 of 2) 2022 COVID-19 VACCINE ( - season) 2024 07/16/2022, 07/19/2021, 09/28/2020, Additional history exists DEPRESSION SCREENING 12/13/2024 12/14/2023 BLOOD PRESSURE 04/05/2025 10/06/2024 PAP SMEAR 04/24/2025 04/24/2022, 11/0 02/2019, 12/24/2017 CREATININE LEVEL 09/30/2025 09/30/2024, , 11/28/2022, Additional history exists POTASSIUM LEVEL 09/30/2025 09/30/2024, 07/17/2023 COLONOSCOPY 04/26/2026 04/26/2021 COLORECTAL CANCER SCREENING 04/26/2026 MAMMOGRAM 10/12/2026 10/12/2024, 09/21, 07/04/2022, Additional history exists SCREENING FOR DIABETES 09/30/2027 09/30/2024, 2022 LIPID PANEL 09/30/2029 09/30/2024, 09/21, 09/30/2024, Additional history exists Adult Td,Tdap Booster 06/15/2031 06/15/2021, 010 INFLUENZA VACCINE Completed 06/22/2024, , 07/08/2022, Additional history exists SMOKING STATUS SCREENING (Once After 26 Yrs) Completed 10/06/2024 HEPATITIS A VACCINES Aged Out No long er eligible based on patient's age to complete this topic HIB VACCINES Aged Out No longer eligi ble based on patient's age to complete this topic MENINGOCOCCAL VACCINES (ACWY) Aged Out No longer eligible based on patient's age to complete this topic Medical Devices Not on file Procedures Procedure Name Priority Date/Time Associated Diagnosis Comments MAMMOGRAPHY Routine 10/12/2024 8:24 AM EST OUTSIDE HDL Routine 09/30/2024 OUTSIDE POTASSIUM LEVEL Routine 09/30/2024 OUTSIDE SERUM CREATININE LEVEL Routine 09/30/2024 OUTSIDE GLUCOSE FASTING Routine 07/17/2023 PAP TEST Routine 04/24/2022 COLONOSCOPY FOR RESULT ENTRY ONLY Routine 04/26/2021 from Last 3 Months or Most Recently Relevant to Health Maintenance Results * MAMMOGRAPHY FOR RESULT ENTRY ONLY (10/12/2024 8:24 AM EST) Historical Provider [facility] * Outside Potassium Level (09/30/2024) Potassium level - External 4.1 3.4 - 5.0 mmol/L EXTERNAL NON-INTERFACED REF LAB Historical Provider LAB BLOOD ORDERAB LES Performing Organization Address [facility] de Phone Number EXTERNAL NON-INTERFACED REF LAB * (ABNORMAL) Outside Serum Creatinine Level (09/30/2024) Creatinine, serum - External 0.72(A) 0.8 - 1.3 mg/dL EXTERNAL NON-INTERFACED REF LAB Historical Provider LAB BLOOD ORDERAB LES Performing Organization Address [facility] de Phone Number EXTERNAL NON-INTERFACED REF LAB * Outside HDL (09/30/2024) HDL - External 52 40 - 80 mg/dL EXTERNAL NON-INTERFACED REF LAB Historical Provider LAB BLOOD ORDERAB LES Performing Organization Address [facility] de Phone Number EXTERNAL NON-INTERFACED REF LAB * Outside Glucose,Fasting (07/17/2023) Glucose, fasting - External 98 65 - 99 mg/dL Historical Provider LAB BLOOD ORDERAB LES * Pap Test (04/24/2022) Jewel Lopez MD CYTOLOGY ORDERABLES * HM COLONOSCOPY FOR RESULT ENTRY ONLY (04/26/2021) Historical [facility] from Last 3 Months or Most Recently Relevant to Health Maintenance Care Teams Manager Studio Relationship Specialty Start Date End Date Jewel Lopez MD [address] [place] [address] [email or web address] PCP - General Internal Medicine 05/14/21 Additional Source Comments The information contained in this document represents components of the legal health record. It is not the complete legal health record.[facility]
--- OUTSIDE RECORDS SUMMARY | 2025-01-04 06:42 | XMS_ITS ---
Author Organization [facility] Address [address] [place] [phone] Care Team Providers Care Quickbooks Bookkeeper Name Role Phone Jewel Lopez MD Primary Care Provider Miriam Matias Jr, Rebel Palomo [phone] REASON FOR VISIT r/s Encounters Encounter Location Date Provider Diagnosis [facility] [address] [facility] [address] [place] [phone] 10/05/2024 Rebel Matias Jr Plan Of Treatment Next Appt Details Provider Name:Rebel raza Jr, 01/19/2025 03:15:00 PM, [address] [place] [address], [address], [place], [address], Progress Notes * PARMINDER YANG MDOB:[birth year] (54 yo F)Acc No.[id number]:10/05/2024 Patient:?PARMINDER YANG :1970???Age:54 Y???Sex:Female Address:[address] [place] [address] * true * Date:? Generated for Printi ng/Fasimong/eTransmitting on:?01/04/2025 06:42 AM EDT
[2025-01-04 06:53] LABS: MANUAL DIFF FLAG NO
[2025-01-04 07:52] LABS: Basophils Percent Auto 0.5 % (0-2); Eosinophils Absolute Auto 0.3 X10*3/uL (0.0-0.4); Eosinophils Percent Auto 4.8 % (0-4); Hematocrit 39.8 % (37.0-47.0); Hemoglobin 13.4 g/dl (12.0-16.0); Imm Gran Abs Auto 0.03 X10*3/uL (0.00-0.03); Imm Gran Pct Auto 0.5 % (0.0-0.4); Lymphocytes Absolute Auto 1.5 X10*3/uL (1.2-4.9); Mean Corpuscular HGB Conc 33.7 g/dl (31.0-35.0); Mean Corpuscular Hemoglobin 29.6 pg (27.0-33.0); Mean Corpuscular Volume 87.9 fL (80.0-98.0); Mean Platelet Volume 10.9 fL (9.4-12.3); Monocytes Absolute Auto 0.4 X10*3/uL (0.1-1.2); Monocytes Percent Auto 6.3 % (2-11); Neutrophils Absolute Auto 3.7 x10*3/uL (2.0-8.3); Neutrophils Percent Auto 62.9 % (45-73); Platelet Count 199 X10*3/uL (160-400); Red Blood Count 4.53 X10*6/uL (4.20-5.50); Red Cell Distribution Width 12.5 % (11.0-16.0); White Blood Count 5.9 X10*3/uL (4.8-10.8)
[2025-01-04 08:06] LABS: Alanine Aminotransferase 50 U/L (0-31); Albumin Level 4.3 g/dL (3.5-5.0); Alkaline Phosphatase 66 U/L (39-117); Anion Gap 11 (12-20); Aspartate Amino Transferase 32 U/L (5-31); Bilirubin Total 0.5 mg/dL (0.0-1.0); Blood Urea Nitrogen 12 mg/dL (9-16); Calcium 9.5 mg/dL (8.4-10.2); Carbon Dioxide 25 mmol/L (22-29); Chloride 112 mmol/L (96-108); Cholesterol 209 mg/dL (<200); Estimated Glomerular Filt Rate > 60; Glucose Random 99 mg/dL (60-115); HDL Cholesterol 47 mg/dL (>40); LDL Cholesterol Calculated 139 mg/dL (<100); Potassium 4.1 mmol/L (3.3-5.1); Sodium 144 mmol/L (135-145); Total Protein 6.7 g/dL (6.5-8.0); Triglycerides 116 mg/dL (<150)
[2025-01-04 08:35] LABS: HBS Num1 3.81 mIU/mL (0-7.99); HBsAGNum1 0.25 S/CO (0.00-0.99); Hepatitis B Surface Antigen Negative (Negative); ~HepC Num1 0.17 S/CO (0.00-0.79); ~Hepatitis B Surface Antibody NONREACTIVE (Nonreactive); ~Hepatitis C Antibody Nonreactive (Nonreactive)
== END 2025-01-04 06:39 | disposition home or self-care (01) ==
LOC: HO.LAB 06:38
PROVIDERS: PCP Internal Medicine; Visit Provider Internal Medicine
DX: R94.5 Abnormal results of liver function studies (principal)
CPT/HCPCS: 36415; 80053; 80061; 85025; 86706; 86803; 87340

== ENCOUNTER → 2025-01-27 14:53 | Outpatient (REF) | payer OTHER, SELFPAY ==
--- NOTE | 2025-01-27 14:55 | CA_ITS ---
Transthoracic Echocardiogram Patient (Last, First, Middle): Lizzy Ayon M Gender: Female Date of : 1970 Age: 54 Procedure Date: 01/27/2025 Procedure Type: Transthoracic Echocardiogram Location: OP Height: 170. cm Weight: 88.45 kg BSA: 2.00 m2 Heart Rate: 60 bpm BP: 130 / 80 mmHg Captain Room Service: [email or web address] Referring MD: Naveen Avitia MD Symptoms: I48.0 - Paroxysmal atrial fibrillation Study Quality: Good ECG Rhythm: Sinus Conclusions: - The left ventricular systolic function is normal. The calculated ejection fraction is 61% by biplane method. - No obvious valvular pathology seen on this study. Findings Left Ventricle Normal left ventricular cavity size. There is normal left ventricular wall thickness. The left ventricular systolic function is normal. The calculated ejection fraction is 61% by biplane method. There is no evidence of regional wall motion abnormalities. Diastolic function is normal for age. Right Ventricle Normal right ventricular cavity size and systolic function. Atria The left atrium is mildly dilated. The right atrium is normal in size. Aortic Valve There is a normal trileaflet aortic valve. There is mild calcification of the aortic valve. There is no aortic valve stenosis. There is no aortic valve regurgitation. Mitral Valve The mitral valve appears normal. There is trace mitral valve regurgitation. There is no mitral valve stenosis. Pulmonic Valve The pulmonic valve is likely normal. Tricuspid Valve There is mild tricuspid valve regurgitation. There is no evidence of pulmonary hypertension. Great Vessels The asc aorta and aortic arch are normal in size. Venous The inferior vena cava is normal in size and collapses greater than 50% with inspiration. Pericardium/Pleural There is no evidence of pericardial effusion. Prior Study Comparison No significant change compared to prior study dated: 08/26/2023. Recommendations, Care & Conclusions No obvious valvular pathology seen on this study. Measurements 2D Linear Measurements IVSd: 0.79 0.6-0.9/0.6-1.0 cm LVIDd: 4.93 3.9-5.3/4.2-5.9 cm LVIDd Index: 2.47 2.4-3.2/2.2-3.1 cm/m2 LVIDs: 3.04 2.0-3.6 cm LVPWd: 0.92 0.7-1.1 cm LA Diam: 4.30 2.7-3.8/3.0-4.0 cm LAIDs Index: 2.15 1.5-2.3 cm/m2 LV Mass: 179.44 67-162/88-224 g LV Mass Index: 89.72 43-95/49-115 g/m2 LVOT Diam: 2.20 3.0+(-)1.3 cm 2D Systolic Function EF 4C: 63.40 >55% EF 2C: 59.30 >55% EF BiP: 61.20 >55% Mitral Valve MV Pk E: 0.82 MV PK A: 0.51 MV Decel Time: 183.00 E/A: 1.60 E'Lateral: 12.20 E'Medial: 8.81 E/E' Med: 9.30 E/E' Lat: 6.70 PHT: 54.00 MVA PHT: 4.07 Decel Arroyo: 4.49 Aortic Valve AoV Pk Toby: 1.59 AoV Mn Toby: 1.09 AoV VTI: 0.37 AoV Pk Grad: 10.00 Aov Mn Grad: 5.00 ELLA Cont.VTI: 2.53 LVOT LVOT Pk Toby: 1.15 LVOT Mn Toby: 0.75 LVOT VTI: 0.25 LVOT Pk Grad: 5.00 LVOT Mn Grad: 3.00 LVOT Diam: 2.20 LVOT Area: 3.80 Diastolic Function MV Pk E: 0.82 MV Pk A: 0.51 E/A: 1.60 E'Medial: 8.81 E/E' Med: 9.30 E' Laterial: 12.20 E/E' Lat: 6.70 Right Ventricle TAPSE (mm): 18.90 TVS' Toby: 10.10 Tricuspid Valve TR Pk Toby: 2.08 TR Pk Grad: 17.00 RA Press: 3.00 RVSP: 20.00 Great Vessels Aorta Sinus of Valsalva: 2.70 2.0-3.5 cm Ao Asc: 3.10 2.1-3.4 cm Ao Arch: 2.90 Pulmonary Valve PV Pk Toby: 1.26 Peak PV Grad: 6.00 Updated in Other Vendor System with Status of Final Louis Mane MD electronically signed on 01/28/2025 1:11:46 PM with status of Final
--- OUTSIDE RECORDS SUMMARY | 2025-01-27 14:56 | XMS_ITS | Patient Health Record ---
Author Organization [facility] Address [address] [place] [phone] Care Team Providers Care Judicial Administrative Assistant Name Role Phone Jewel Lopez MD Primary Care Provider Rebel Kerns Jr Unavailable Allergies Allergen (clinical drug ingredient) Drug/Non Drug Allergy documented on EMR Reaction Allergy Type Onset Date Status Penicillin Unknown Drug Allergy Active azithromycin Zithromax Z-Paras Unknown Drug Allergy Active Reason For Referral No Information Medications Medication SIG (Take, Route, Frequency, Duration) Notes Start Date End Date Status Sertraline HCl 50 MG Oral for 90 Active Esomeprazole Magnesium 40 MG TAKE 1 CAPSULE BY MOUTH EVERY DAY for 90 Active Losartan Potassium 25 MG 1 tablet Orally Once a day Active Metoprolol Succinate ER 50 MG Orally Active Immunizations Vaccine Route Administration Date Status Comme nts Influenza Unknown 07/04/2020 Administered Influenza Unknown 05/22/2022 Administered Problems Problem Type SNOMED Code ICD Code Onset Dates Problem Status W/U Status Risk Notes Problem 702888930 Colon cancer screening (Z12.11) Active confirmed Problem 48572927 Rectal bleeding (K62.5) Active confirmed Problem 52057199 Diarrhea (R19.7) Active confirmed Problem 934094812 Change in bowel habits (R19.4) Active confirmed Problem 989100333 Gastroesophageal reflux disease without esophagitis (K21.9) Active confirmed Vital Signs Blood pressure diastolic 77 mm Hg 01/19/2025 Height 67.5 in 01/19/2025 Blood pressure systolic 111 mm Hg 01/19/2025 Weight 201 lbs 01/19/2025 BMI 31.01 kg/m2 01/19/2025 Encounters Encounter Location Date Provider Diagnosis [facility] [address] [place] [address] 01/19/2025 Rebel Matias Jr Elevated LFTs R94.5 [facility] [address] [facility] [address] [place] [address] 10/05/2024 Rebel Matias Jr Assessments Encounter Date Diagnosis (ICD Code) Assessment Notes Treatment Notes Treatment Clinical Notes Section Notes 01/19/2025 Elevated LFTs (ICD-10 - R94.5) Plan Of Treatment Pending Test Test Name Order Date LIVER PROFILE 01/19/2025 CLOSTRIDIUM DIFF TOXIN A&B (C DIFF) 06/23 STOOL WBC 2016 OVA & PARASITES (O&P) 2016 CULTURE, STOOL 2016 Liver Fibrosis Pnl 01/19/2025 Future Test Test Name Order Date COLONOSCOPY 09/03/2016 UPPER GI ENDOSCOPY 02/06/2021 COLONOSCOPY 02/06/2021 Next Appt Details Provider Name:Rebel raza Jr, 01/25/2026 03:55:00 PM, [address] [facility], [address], [place], [address], Insurance Providers Payer Name Payer Address Payer Phone Subscriber Number Group Number Insured Name Patient Relationship to Insured Coverage Start Date Coverage End Date [employer] [address] [address] [place] [address] [id number] PARMINDER GARDUNO Self - patient is the insured Medical (General) History Medical History History ICD Code Gastroesophageal reflux dise ase, upper endoscopy 05/11, no H. pylori or Morejon's esophagus, benign nodule sinusitis deviated septum Atrial fibrillation mitral valve prolapse Colonoscopy 05/11, normal, pr evious history of colon polyp 2017, ten-year followup stress cardio myopathy Surgical History Surgery Date(Month/Year) left knee arthoscopy breast biopsy-left 09/02/2016 afib ablation 07/29/2016 Caesarean section
--- OUTSIDE RECORDS SUMMARY | 2025-01-27 14:56 | XMS_ITS ---
Author Organization [facility] Address [address] [place] [address] Care Team Providers Care Research & Analytics Manager Name Role Phone Jewel Lopez MD Primary Care Provider Miriam Matias Jr, Rebel Palomo Allergies Allergen (clinical drug ingredient) Drug/Non Drug Allergy documented on EMR Reaction Allergy Type Onset Date Status Penicillin Unknown Drug Allergy Active azithromycin Zithromax Z-Paras Unknown Drug Allergy Active REASON FOR VISIT Patient presents today for gerd Medications Medication SIG (Take, Route, Frequency, Duration) Notes Start Date End Date Status Sertraline HCl 50 MG Oral for 90 Active Esomeprazole Magnesium 40 MG TAKE 1 CAPSULE BY MOUTH EVERY DAY for 90 Active Losartan Potassium 25 MG 1 tablet Orally Once a day Active Metoprolol Succinate ER 50 MG Orally Active Vital Signs Blood pressure systolic 111 mm Hg 01/20/20 25 Blood pressure diastolic 77 mm Hg 025 Height 67.5 in 01/19/2025 Weight 201 lbs 01/19/2025 BMI 31.01 kg/m2 01/19/2025 Encounters Encounter Location Date Provider Diagnosis [facility] [address] [place] [address] 01/19/2025 Rebel Matias Jr Elevated LFTs R94.5 Assessments Encounter Date Diagnosis (ICD Code) Assessment Notes Treatment Notes Treatment Clinical Notes Section Notes 01/19/2025 Elevated LFTs (ICD-10 - R94.5) Plan Of Treatment Pending Test Test Name Order Date LIVER PROFILE 01/19/2025 Liver Fibrosis Pnl 01/19/2025 Next Appt Details Provider Name:Rebel raza Jr, 01/25/2026 03:55:00 PM, [address], [address], [place], [address], Progress Notes * PARMINDER YANG MDOB:[birth year] (54 yo F)Acc No.[id number]:01/19/2025 Progress Notes Patient:?PARMINDER YANG Provider:?Rebel Matias MD :1970???Age:54 Y???Sex:Female D ate:01/19/2025 Address:[address] [place], [place] [id number] Pcp:Jewel Lopez MD Subjective: * Chief Complaints: * ???1. Patient presents today for gerd. * Medical History:?Gastroesoph ageal reflux disease, upper endoscopy 05/11, no H. pylori or Morejon's esophagus, benign nodule, Sinusitis, Deviated septum, Atrial fibrillation, Mitral valve prolapse, Colonoscopy 05/11, normal, previous history of colon polyp 2016, ten-year followup, Stress cardio myopathy. * Surgical History:?Caesarean section , afib ablation 07/29/2016, breast biopsy- left 09/02/2016, left knee arthoscopy . * Family History:?Father: dece ased, diagnosed with HTN (hypertension).?Mother: , pancreatic cancer at age 75, diagnosed with Heart disease.?Paternal aunt: , diagnosed with Colon cancer. Maternal aunt: , diagnosed with Colon cancer.? The patient's mother from pancreatic cancer, 3 aunts with colon cancer. Father had fatty liver. Her older brother has AML. * Social History:?Tobacco Use:?Tobacco Use/Smoking?Patient is a: former smoker , How long has it been since you last smoked?: 5-10 years.?Drugs/Alcohol:?Alcohol Screen?Points: 4, Interpretation: Positive.?Miscellaneous:?Marital status: . 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 * Medications:?Taking Losartan Potassium 25 MG Tablet 1 tablet Orally Once a day , Taking Metoprolol Succinate ER 50 MG Tablet Extended Release 24 Hour Orally , Taking Sertraline HCl 50 MG Tablet Oral , Taking Esomeprazole Magnesium 40 MG Capsule Delayed Release TAKE 1 CAPSULE BY MOUTH EVERY DAY , Discontinued Ibuprofen , Notes to Pharmacist: PRN, Medication List reviewed and reconciled with the patient * Allergies:?Penicillin, Zithr omax Z-Paras. Objective: * Vitals:?Wt:201lbs, Ht: 67.5 in, BMI:31.01Index, BP:111/77mm Hg, Wt-k.17. Assessment: * Assessment: 1.?Elevated LFTs - R94.5 (Pr imary)??? Plan: * Treatment: * Preventive Medicine:? ??Counseling:?Care goal follow-up plan:?Above Normal BMI Follow-up?Giving encouragement to exercise,?BMI management provided?Yes.? * * The named appointment provid er may or may not be the originator of this progress note, and it is not deemed complete until electronically signed by the appointment provider. Sign off status: Pending * Provider:?Rebel Matias MD Date:?0 01/19/2025 Generated for Keo coulter/Mamadou/Poloitting on:?01/27/2025 02:56 PM EDT
--- OUTSIDE RECORDS SUMMARY | 2025-01-27 14:56 | XMS_ITS ---
Author Organization [facility] Address [address] [place] [address] Care Team Providers Care Electronic Instrument Trades Worker Name Role Phone Jewel Lopez MD Primary Care Provider Miriam Matias Jr, Rebel Palomo REASON FOR VISIT r/s Encounters Encounter Location Date Provider Diagnosis [facility] [address] [place] [address] 10/05/2024 Rebel Matias Jr Plan Of Treatment Next Appt Details Provider Name:Rebel raza Jr, 01/25/2026 03:55:00 PM, [address], [address], [place], [address], Progress Notes * PARMINDER YANG MDOB:[birth year] (54 yo F)Acc No.[id number]:10/05/2024 Patient:?PARMINDER YANG :1970???Age:54 Y???Sex:Female Address:[address] [place] [address] * true * Date:? Generated for Printi ng/Fasimong/eTransmitting on:?01/27/2025 02:56 PM EDT
--- OUTSIDE RECORDS SUMMARY | 2025-01-27 14:56 | XMS_ITS | Clinical Summary ---
Author Organization [facility] Address [address] [place] [address] [place] [address] Phone Care Team Providers Care Staffing Clerk Name Role Phone Jewel Lopez MD Primary Care Provider [phone] Allergies Active Allergy Reactions Criticality Noted Date Comments Azithromycin GI Upset 05/24/2021 Lisinopril Cough 12/14/2023 Penicillins Unknown 09/15/2017 Medications Medication Sig Dispensed Refills Start Date End Date Status metoprolol succinate (TOPROL-XL) 50 MG 24 hr tabletIndications:h ypertension Take 50 mg by mouth daily. Take 50 mg in am and 25 mg in pm Indications: high blood pressure Active esomeprazole (NEXIUM) 40 MG capsule Take 40 capsules by mouth daily. 1 Active clobetasol (TEMOVATE) 0.05 % cream Apply 1 application. topically 2 (two) times a day as needed. 2 Active cholecalciferol, vitamin D3, (VITAMIN D3 ORAL)Indications:pt will next time, not sure of dose Take 3 gummies once daily Indications: pt will next time, not sure of dose Active sertraline (ZOLOFT) 50 MG tabletIndications:A nxiety TAKE 1 TABLET BY MOUTH EVERY DAY 30 tablet 11 4 Active LORazepam (ATIVAN) 0.5 MG tabletIndications:A nxiety Take 1 tablet (0.5 mg total) by mouth 2 (two) times a day as needed for anxiety. 16 tablet 5 Active losartan (COZAAR) 25 MG tabletIndications:T akotsubo cardiomyopathy TAKE 1 TABLET (25 MG TOTAL) BY MOUTH DAILY. 90 tablet 2 5 Active triamcinolone acetonide 0.1 % cream Apply 1 Application topically 2 (two) times a day as needed. 4 01/14/20 Discontinued semaglutide, weight loss, (WEGOVY) 0.25 mg/0.5 mL subcutaneous pen injectionIndication s:Class 1 obesity due to excess calories without serious comorbidity with body mass index (BMI) of 32.0 to 32.9 in adult,Essential hypertension,Pure hypercholesterolemi a,Impaired fasting glucose Inject 0.5 mL (0.25 mg total) under the skin every 7 days. 2 mL 1 5 01/14/20 Discontinued Active Problems Problem Noted Date Diagnosed [...] Encounters Date Type Department Care Team Description 01/13/2025 4:00 PM EDT Office Visit [facility] Internal Medicine [address] [place] [address] Jewel Lopez MD Benign essential hypertension (Primary Dx); Liver function abnormality; Need for hepatitis B screening test; Snoring; Other fatigue 01/11/2025 Documentation [facility] Internal Medicine [address] [facility] [place] [address] Jewel Lopez MD 01/06/2025 Orders Only [facility] Internal Medicine [address] [facility] [place] [id number] ProviderLatisha MD 12/07/2024 Refill [facility] [address] [facility] [place] [id number] Jewel Lopez MD Medication Refill from Last 3 Months Immunizations Name Administration [...] Comments:QUIT 2006 Alcohol Use Standard Drinks/Week Comments Not Currently 0 (1 standard drink = 0.6 oz pur [...] high school, GED, job training, learning the Sinhala language, technical skills, or developing parenting skills)? [...] Sign Reading Time Taken Comments Blood Pressure 148/86 01/13/2025 4:20 PM EDT Pulse 60 01/13/2025 4:20 PM EDT Temperature 36.3 ??C (97.4 ??F) 01/13/2025 4:20 PM ED T Respiratory Rate 20 01/13/2025 4:20 PM EDT Oxygen Saturation 96% 01/13/2025 4:20 PM EDT Inhaled Oxygen Concentration - - Weight 91.7 kg (202 lb 3.2 oz) 01/13/2025 4:20 P M EDT Height 169.8 cm (5' 6.85 ) 01/13/2025 4:20 PM ED T Body Mass Index 31.81 01/13/2025 4:20 PM EDT Plan of Treatment Upcoming Encounters Date Type Department Care Team (Late st Contact Info) Description 07/26/2025 4:00 PM EST Appointment [facility] Internal Medicine [address] [place] [address] Jewel Lopez MD [address] [place] [address] [email or web address] Health Maintenance Due Date Last Done Comments HEPATITIS C SCREENING 1990 HIV ONE-TIME SCREENING (18-65 YEARS) 1990 COLOGUARD 2017 FIT TEST 2017 FOBT 2017 SIGMOIDOSCOPY 2017 VIRTUAL COLONOSCOPY 2017 PNEUMOCOCCAL VACCINES (50+ years) (1 of 1 - PCV) 2022 ZOSTER VACCINES (1 of 2) 2022 COVID-19 VACCINE (5 - season) 2024 07/16/2022, 07/19/2021, 09/28/2020, Additional history exists PAP SMEAR 04/24/2025 04/24/2022, 11/0 02/2019, 12/24/2017 BLOOD PRESSURE 07/15/2025 01/13/2025 CREATININE LEVEL 01/04/2026 01/04/2025, 06/2025, 07/17/2023, Additional history exists POTASSIUM LEVEL 01/04/2026 01/04/2025, 09/21, 07/17/2023 DEPRESSION SCREENING 01/12/2026 01/12/2025 COLONOSCOPY 04/26/2026 04/26/2021 COLORECTAL CANCER SCREENING 04/26/2026 MAMMOGRAM 10/12/2026 10/12/2024, 09/21, 07/04/2022, Additional history exists SCREENING FOR DIABETES 09/30/2027 09/30/2024, 2022 LIPID PANEL 01/04/2030 01/04/2025, 12/20, 01/04/2025, Additional history exists Adult Td,Tdap Booster 06/15/2031 06/15/2021, 010 SMOKING STATUS SCREENING (Once After 26 Yrs) Completed 01/13/2025 HEPATITIS A VACCINES Aged Out No long er eligible based on patient's age to complete this topic HIB VACCINES Aged Out No longer eligi ble based on patient's age to complete this topic MENINGOCOCCAL VACCINES (ACWY) Aged Out No longer eligible based on patient's age to complete this topic Medical Devices Not on file Procedures Procedure Name Priority Date/Time Associated Diagnosis Comments OUTSIDE LAB Routine 01/04/2025 12:40 PM EDT OUTSIDE POTASSIUM LEVEL Routine 01/04/2025 OUTSIDE LDL Routine 01/04/2025 OUTSIDE ALT LEVEL Routine 01/04/2025 OUTSIDE TOTAL CHOLESTEROL Routine 01/04/2025 OUTSIDE ALKALINE PHSOPHATASE LEVEL Routine 01/04/2025 OUTSIDE HDL Routine 01/04/2025 OUTSIDE SERUM CREATININE LEVEL Routine 01/04/2025 OUTSIDE TRIGLYCERIDES Routine 01/04/2025 MAMMOGRAPHY Routine 10/12/2024 8:24 AM EST OUTSIDE GLUCOSE FASTING Routine 07/17/2023 PAP TEST Routine 04/24/2022 COLONOSCOPY FOR RESULT ENTRY ONLY Routine 04/26/2021 from Last 3 Months or Most Recently Relevant to Health Maintenance Results * Outside Lab (01/04/2025 12:40 PM EDT) Historical Provider MD LAB BLOOD ORDERAB LES * Outside Triglycerides (01/04/2025) Triglycerides - External 116 35 - 150 mg/dL EXTERNAL NON-INTERFACE D REF LAB Historical Provider MD LAB BLOOD ORDERAB LES Performing Organization Address [facility] de Phone Number EXTERNAL NON-INTERFACED REF LAB * Outside Potassium Level (01/04/2025) Potassium level - External 4.1 3.4 - 5.0 mmol/L EXTERNAL NON-INTERFACED REF LAB Historical Provider MD LAB BLOOD ORDERAB LES Performing Organization Address [facility] Co de Phone Number EXTERNAL NON-INTERFACED REF LAB * Outside LDL (01/04/2025) LDL - External 139 50 - 250 mg/dL EXTERNAL NON-INTERFACED REF LAB Historical Provider MD LAB BLOOD ORDERAB LES Performing Organization Address [facility] Co de Phone Number EXTERNAL NON-INTERFACED REF LAB * (ABNORMAL) Outside Serum Creatinine Level (01/04/2025) Creatinine, serum - External 0.72(A) 0.8 - 1.3 mg/dL EXTERNAL NON-INTERFACED REF LAB Historical Provider MD LAB BLOOD ORDERAB LES Performing Organization Address [facility] Co de Phone Number EXTERNAL NON-INTERFACED REF LAB * (ABNORMAL) Outside ALT Level (01/04/2025) ALT - External 50(A) 5 - 30 U/L EXTE RNAL NON-INTERFACED REF LAB Historical Provider MD LAB BLOOD ORDERAB LES Performing Organization Address [facility] Co de Phone Number EXTERNAL NON-INTERFACED REF LAB * (ABNORMAL) Outside Total Cholesterol (01/04/2025) Cholesterol, total - External 209(A) 200 mg/dL EXTERNAL NON-INTERFACED REF LAB Historical Provider MD LAB BLOOD ORDERAB LES Performing Organization Address [facility] Co de Phone Number EXTERNAL NON-INTERFACED REF LAB * Outside Alkaline Phosphatase Level (01/04/2025) ALKALINE PHOSPHATE LEVEL - EXTERNAL 66 50 - 100 U/L EXTERNAL NON-INTERFACED REF LAB Historical Provider LAB BLOOD ORDERAB LES Performing Organization Address [facility] de Phone Number EXTERNAL NON-INTERFACED REF LAB * Outside HDL (01/04/2025) HDL - External 47 40 - 80 mg/dL EXTERNAL NON-INTERFACED REF LAB Historical Provider LAB BLOOD ORDERAB LES Performing Organization Address [facility] de Phone Number EXTERNAL NON-INTERFACED REF LAB * HM MAMMOGRAPHY FOR RESULT ENTRY ONLY (10/12/2024 8:24 AM EST) Historical Provider MD CJ PETIT E * Outside Glucose,Fasting (07/17/2023) Glucose, fasting - External 98 65 - 99 mg/dL Historical Provider LAB BLOOD ORDERAB LES * Pap Test (04/24/2022) Jewel Lopez MD CYTOLOGY ORDERABLES * HM COLONOSCOPY FOR RESULT ENTRY ONLY (04/26/2021) Historical Provider MD CJ Mcdaniel from Last 3 Months or Most Recently Relevant to Health Maintenance Mytkolatanya, Lizzy Personal/Family Self [address] [place] [address] Mytkolatanya, Lizzy Personal/Family Self [address] [facility] [place] [address] Mytepifanio, Lizzy Personal/Family Self [address] [place] [address] Mytepifanio, Lizzy Personal/Family Self [address] [place] [address] Care Teams Staffing Clerk Relationship Specialty Start Date End Date Jewel Lopez MD [address] [place] [address] [email or web address] PCP - General Internal Medicine 05/14/21 Additional Source Comments The information contained in this document represents components of the legal health record. It is not the complete legal health record.[facility]
--- OUTSIDE RECORDS SUMMARY | 2025-01-27 14:56 | XMS_ITS | Encounter Summary ---
Author Organization [facility] Address [address] [place] [address] Phone Care Team Providers Care Looping Inspector Name Role Phone Jewel Lopez MD Primary Care Provider [phone] Encounter Details Date Type Department Care Team (Late st Contact Info) Description 01/06/2025 Orders Only [facility] Internal Medicine [address] [place] [address] Provider, MD Latisha [address] [place] [phone] Social History Tobacco Use Types Packs/Day Years Used Date Smoking Tobacco: Former Cigarettes 0.3 15 0 05/24/1992 - 05/24/2007 Smokeless Tobacco: Never Comments:QUIT 2006 Alcohol Use Standard Drinks/Week Comments [...] high school, GED, job training, learning the [place] language, technical skills, or developing parenting skills)? [...] your housing situation today? I have jonatan thomas 12/14/2023 How many times have you move [...] on file Sexual Orientation Not on file documented as of this encounter Plan of Treatment Upcoming Encounters Date Type Department Care Team (Late st Contact Info) Description 07/26/2025 4:00 PM EST Appointment [facility] Internal Medicine [address] [place] [address] Jewel Lopez MD [address] [place] [address] documented as of this encounter Procedures Procedure Name Priority Date/Time Associated Diagnosis Comments OUTSIDE LAB Routine 01/04/2025 12:40 PM EDT documented in this encounter Results * Outside Lab (01/04/2025 12:40 PM EDT) Historical Provider LAB BLOOD ORDERAB LES documented in this encounter Visit Diagnoses Not on filedocumented in this encounter Additional Health Concerns Assessment Noted Time PHQ-2 Depression Total Score: 0 12/14/19 24 3:22 PM EDT documented as of this encounter Care Teams Looping Inspector Relationship Specialty Start Date End Date Jewel Lopez MD [address] [place] [address] [email or web address] PCP - General Internal Medicine 05/14/21 documented as of this encounter Additional Source Comments The information contained in this document represents components of the legal health record. It is not the complete legal health record.[facility]
--- OUTSIDE RECORDS SUMMARY | 2025-01-27 14:56 | XMS_ITS ---
Author Organization [facility] Address [address] [place] [address] Care Team Providers Care Resident Care Assistant Name Role Phone Jewel Lopez MD Primary Care Provider Miriam Matias Jr, Rebel Palomo REASON FOR VISIT GERD Encounters Encounter Location Date Provider Diagnosis [facility] [address] [facility] [facility] [address] [place] [address] 10/06/2024 Rebel Matias Jr Plan Of Treatment Next Appt Details Provider Name:Rebel raza Jr, 01/25/2026 03:55:00 PM, [address], [address], [place], [address], Progress Notes * PARMINDER YANG MDOB:[birth year] (54 yo F)Acc No.[id number]:10/06/2024 Progress Notes Patient:?PARMINDER YANG Provider:?Rebel Matias MD :1970???Age:54 Y???Sex:Female D ate:10/06/2024 Address:[address] [place], [place] [id number] Pcp:Jewel Lopez MD Subjective: * Chief Complaints: [...] Date:?0 10/06/2024 Generated for Keo coulter/Mamadou/Jose F on:?01/27/2025 02:56 PM EDT
== END ==
LOC: HO.CARD 14:53
PROVIDERS: PCP Internal Medicine; Visit Provider Internal Medicine Cardiovascular Disease
DX: I48.0 Paroxysmal atrial fibrillation (principal)
CPT/HCPCS: 93306

== ENCOUNTER → 2025-01-27 14:55 | Outpatient (BNV) | payer OTHER, SELFPAY | PROVIDERS: PCP Internal Medicine; Visit Provider Internal Medicine | DX: I35.0 Nonrheumatic aortic (valve) stenosis (principal); I34.0 Nonrheumatic mitral (valve) insufficiency | CPT/HCPCS: 93306 ==

== ENCOUNTER 2025-02-09 15:06 | Outpatient (AMB) | payer OTHER, SELFPAY ==
--- NOTE | 2025-02-09 15:10 | A.OFFVIS_ITS ---
Vital Signs 02/09/25 15:11 Height 5 ft 7.5 in Weight 200 lb 9.93 oz BMI 31.0 BP 120/78 Blood Pressure Location Lt brachial Position Sitting Pulse 60 Intake Visit Reasons: 1 yr follow up Intake Note: 1 year follow-up with ekg after echo feeling ok had some chest tightness a few months ago Contact Lens Fitter Required: No Allergies azithromycin [AZITHROMYCIN] Allergy (Intermediate, Verified 06/30/24 10:13) ABDOMINAL PAIN Penicillins [PENICILLINS] Allergy (Unknown, Verified 06/30/24 10:13) ? RXN BABY - ? HIVES Medication List - Last Reconciled 02/09/25 by Naveen Avitia MD esomeprazole magnesium 40 mg PO DAILY fluocinonide 0.1% 1 appl topical BID PRN 3 days losartan 25 mg PO DAILY metoprolol succinate ER 50 mg PO DAILY sertraline 50 mg PO DAILY HPI Comments Details: Lizzy comes for follow-up. She is under a lot of stress related to unexpected passing of her brother recently on a cruise ship as well as planning her daughter's wedding. She was having intermittent episode of chest tightness after that. She is also noted to have elevated blood pressure 1 time during the office visit. However recent echocardiogram shows normal LV ejection fraction. She is very anxious overall right now. Denies [facility] Medical History Paroxysmal atrial fibrillation COVID-19 vaccine series completed Arrhythmia GERD (gastroesophageal reflux disease) Mitral valve prolapse Surgical History History of cardiac radiofrequency ablation H/O colonoscopy History of esophagogastroduodenoscopy (EGD) Family History Mother No problems noted. Father No problems noted. Social History Unable to assess alcohol history related to: Unknown Alcohol intake: current Patient Tobacco Use Status: Former Tobacco user Review of Systems Const Denies chills, Denies fatigue, Denies fever(s), Denies frequent falls, Denies weakness, Denies weight gain and Denies weight loss ENT Denies dizziness Card Denies chest pain, Denies leg edema, Denies lightheadedness, Denies palpitations, Denies dyspnea, Denies dyspnea on exertion, Denies orthopnea and Denies other (loss of consciousness) Resp Denies cough, Denies dyspnea and Denies dyspnea on exertion GI Denies hematochezia and Denies change in stool character Musc Denies abnormal gait, Denies muscle weakness, Denies numbness, Denies radiating pain into limb and Denies tingling Neuro Denies abnormal gait, Denies dizziness, Denies frequent falls, Denies numbness, Denies tingling and Denies weakness Endo Denies fatigue and Denies palpitations Physical Exam Vital Signs: Last Vital Signs Pulse 60 02/09/25 15:11 BP 120/78 02/09/25 15:11 BMI result Body Mass Index 31.0 Const General: cooperative, comfortable, no acute distress, alert, awake and anxious Nutritional Appearance: overweight Orientation/consciousness: patient oriented x3 Limitations: no limitations Neck Neck: Yes trachea midline, Yes supple and Yes no JVD Resp Effort & Inspection: normal respiratory effort Auscultation: clear to auscultation bilaterally Cardio Jugular venous distension: no JVD Palpation: normal PMI Rate: regular rate Rhythm: regular rhythm Heart sounds: S1 normal heart sound present, S2 normal heart sound present, no click, no gallops, no murmurs and no rubs GI Auscultation: normal bowel sounds Neuro General: patient oriented x3 and no focal motor deficits Extrem General: Yes no clubbing, cyanosis or edema Psych Appearance: grossly normal Affect: Anxious affect present Office Procedures EKG Details: EKG shows normal sinus rhythm with normal EKG at 60 beats per minute [id number], Complete Assessment & Plan Assessment & Plan (1) Takotsubo syndrome: Code(s): I51.81 - Takotsubo syndrome Category: Medical Plan: Prior history of takotsubo syndrome related to stress. She had intermittent episode of chest tightness recently but her echocardiogram shows normal LV ejection fraction. She is at high risk for takotsubo syndrome given her significant anxiety and easily stressed out personality. We discussed about management of stress. May benefit from increased dose of sertraline while she never gets her current significant personal stress. Discussed with her. She understands and agrees. No further workup is indicated. (2) Paroxysmal atrial fibrillation: Comment: Status post ablation Code(s): I48.0 - Paroxysmal atrial fibrillation Category: Medical Plan: Paroxysmal atrial fibrillation without any obvious clinical recurrence at this point time. Continue current therapy with metoprolol. Avoidance of stimulants was discussed. Stress mitigation strategies was discussed. Aggressive blood pressure control was advised. There were no recurrent symptoms at this point time and no change in therapy or antiarrhythmic drug therapy is indicated. (3) HTN (hypertension): Code(s): I10 - Essential (primary) hypertension Category: Medical Plan: Hypertension which is currently well optimized. She has intermittent episodes of slightly elevated blood pressure most likely related to increased stress. Advised to participate in stress mitigation strategies. Low-salt diet was discussed. Continue current therapy with losartan and metoprolol. Follow up in the clinic in 1 year's time, sooner p.r.n.. Thank you for allowing me to partake in her care Coding Level of Care Code Est Pt Level 4 (53446) Complex EM visit Add On G2211 Diagnoses Takotsubo syndrome I51.81 Paroxysmal atrial fibrillation I48.0 HTN (hypertension) I10 CPT Codes EKG - CPT: 98702-Nakisdwrojyoqrdvw, Complete ([id number])
[2025-02-09 15:11] VITALS: BP 120/78; PULSE 60; BMI 31.0
--- OUTSIDE RECORDS SUMMARY | 2025-02-09 15:11 | XMS_ITS | Patient Health Record ---
Author Organization [facility] Address [address] [place] [address] Care Team Providers Care Geriatric Social Worker Name Role Phone Jewel Lopez MD [...] Problem Status W/U Status Risk Notes Problem 714858136 Colon cancer screening (Z12.11) Active confirmed Problem 16150058 Rectal bleeding (K62.5) Active confirmed Problem 33378844 Diarrhea (R19.7) Active confirmed Problem 044464915 Change in bowel habits (R19.4) Active confirmed Problem 210245585 Gastroesophageal reflux disease without esophagitis (K21.9) Active confirmed Vital Signs Blood pressure diastolic 77 mm Hg 01/19/2025 Height 67.5 in 01/19/2025 Blood pressure systolic 111 mm Hg 01/19/2025 Weight 201 lbs 01/19/2025 BMI 31.01 kg/m2 01/19/2025 Encounters Encounter Location Date Provider Diagnosis [facility] [address] [place] [address] 01/19/2025 Rebel Matias Jr Elevated LFTs R94.5 [facility] [address] [facility] [address] [place] [address] 10/05/2024 Rebel Matias Jr Assessments Encounter Date [...] Name:Rebel raza Jr, 01/25/2026 03:55:00 PM, [address] [facility], [address], [place], [address], Insurance Providers Payer Name Payer Address Payer Phone Subscriber Number Group Number Insured Name Patient Relationship to Insured Coverage Start Date Coverage End Date [employer] OF [place] [address] [address] [place] [address] [id number] PARMINDER GARDUNO Self - patient is [...]
== END 2025-02-09 15:38 | disposition home or self-care (01) ==
LOC: HO.HCS 15:07
PROVIDERS: PCP Internal Medicine; Visit Provider Internal Medicine Cardiovascular Disease
DX: I51.81 Takotsubo syndrome (principal); I48.0 Paroxysmal atrial fibrillation; I10 Essential (primary) hypertension
CPT/HCPCS: 93010; 99214

== ENCOUNTER → 2025-02-09 15:06 | Outpatient (BNVA) | payer OTHER, SELFPAY | PROVIDERS: PCP Internal Medicine; Visit Provider Internal Medicine Cardiovascular Disease | DX: I48.0 Paroxysmal atrial fibrillation (principal) | CPT/HCPCS: 93005 ==

== ENCOUNTER 2025-04-07 09:05 | Outpatient (REF) | payer OTHER, SELFPAY ==
--- OUTSIDE RECORDS SUMMARY | 2025-04-07 09:09 | XMS_ITS | Patient Health Record ---
Author Organization [facility] Address [address] [place] [address] Care Team Providers Care Creative Services Intern Name Role Phone Jewel Lopez MD Primary Care Provider Rebel Kenrs Jr Unavailable [phone] Allergies Allergen (clinical drug ingredient) Drug/Non Drug [...] Problem Status W/U Status Risk Notes Problem 899655492 Colon cancer screening (Z12.11) Active confirmed Problem 61702624 Rectal bleeding (K62.5) Active confirmed Problem 47193392 Diarrhea (R19.7) Active confirmed Problem 504367781 Change in bowel habits (R19.4) Active confirmed Problem 192534545 Gastroesophageal reflux disease without esophagitis (K21.9) Active confirmed Problem Elevated liver enzymes level (075774018) Elevated LFTs (R94.5) Active confirmed Vital Signs Blood pressure diastolic 77 mm Hg 01/19/2025 Height 67.5 in 01/19/2025 Blood pressure systolic 111 mm Hg 01/19/2025 Weight 201 lbs 01/19/2025 BMI 31.01 kg/m2 01/19/2025 Encounters Encounter Location Date Provider Diagnosis [facility] [address] [place] [address] 01/19/2025 Rebel Matias Jr Elevated LFTs R94.5 ; Gastroesophageal reflux disease without esophagitis K21.9 and Colon cancer screening Z12.11 [facility] [address] [place] [address] 10/05/2024 Rebel Matias Jr Assessments Encounter Date Diagnosis (ICD Code) Assessment Notes Treatment Notes Treatment Clinical Notes Section Notes 01/19/2025 Gastroesophageal reflux disease without esophagitis (ICD-10 - K21.9) We discussed the causes of elevated liver function tests today. She will have follow-up laboratory testing. The most likely cause for her elevated liver function tests is fatty liver and we discussed this today. Ultrasound imaging will be reviewed if it has not already been obtained. Reflux symptoms are under good control. She will continue Nexium. Colon cancer screening is up-to-date. Follow-up will be in 12 months. She will call if she has any problems. 01/19/2025 Elevated LFTs (ICD-10 - R94.5) We discussed the causes of elevated liver function tests today. She will have follow-up laboratory testing. The most likely cause for her elevated liver function tests is fatty liver and we discussed this today. Ultrasound imaging will be reviewed if it has not already been obtained. Reflux symptoms are under good control. She will continue Nexium. Colon cancer screening is up-to-date. Follow-up will be in 12 months. She will call if she has any problems. 01/19/2025 Colon cancer screening (ICD-10 - Z12.11) We discussed the causes of elevated liver function tests today. She will have follow-up laboratory testing. The most likely cause for her elevated liver function tests is fatty liver and we discussed this today. Ultrasound imaging will be reviewed if it has not already been obtained. Reflux symptoms are under good control. She will continue Nexium. Colon cancer screening is up-to-date. Follow-up will be in 12 months. She will call if she has any problems. Plan Of Treatment Pending Test Test Name Order Date LIVER PROFILE 01/19/2025 CLOSTRIDIUM DIFF TOXIN A&B (C DIFF) 06/23 STOOL WBC 2016 OVA & PARASITES (O&P) 2016 CULTURE, STOOL 2016 Liver Fibrosis Pnl 01/19/2025 Future Test Test Name Order Date COLONOSCOPY 09/03/2016 UPPER GI ENDOSCOPY 02/06/2021 COLONOSCOPY 02/06/2021 Next Appt Details Provider Name:Rebel rileydione Silverio, 01/25/2026 03:55:00 PM, [address], [address], [place], [address], Insurance Providers Payer Name Payer Address Payer Phone Subscriber Number Group Number Insured Name Patient Relationship to Insured Coverage Start Date Coverage End Date [employer] OF [place] [address] [address] [place] [address] [id number] PARMINDER GARDUNO Self - patient is the insured Medical (General) History Medical History History ICD Code Gastroesophageal reflux dise ase, upper endoscopy 05/11, no H. pylori or Morejon's esophagus, benign nodule sinusitis deviated septum Atrial fibrillation mitral valve prolapse Colonoscopy 05/11, normal, pr evious history of colon polyp 2016, Follow-up 05/16 Stress cardiomyopathy, cardiac cath nega tive for significant CAD Surgical History Surgery Date(Month/Year) left knee arthoscopy breast biopsy-left 09/02/2016 afib ablation 07/29/2016 Caesarean section
--- OUTSIDE RECORDS SUMMARY | 2025-04-07 09:09 | XMS_ITS | Clinical Summary ---
Author Organization [facility] Address [address] [place] [address] [place] [address] Phone Care Team Providers Care Electronic System Engineer Name Role Phone Jewel Lopez MD Primary Care Provider [phone] Allergies Active Allergy Reactions Criticality Noted Date Comments Azithromycin GI Upset 05/24/2021 Lisinopril Cough 12/14/2023 Penicillins Unknown 09/15/2017 Medications metoprolol succinate (TOPROL-XL) 50 MG 24 hr tabletIndications :hypertension Take 50 mg by mouth daily. Take 50 mg in am and 25 mg in pm Indications: high blood pressure Active esomeprazole (NEXIUM) 40 MG capsule Take 40 capsules by mouth daily. 03/11/20 21 Active clobetasol (TEMOVATE) 0.05 % cream Apply 1 application. topically 2 (two) times a day as needed. 08/08/20 22 Active cholecalciferol, vitamin D3, (VITAMIN D3 ORAL)Indications: pt will next time, not sure of dose Take 3 gummies once daily Indications: pt will next time, not sure of dose Active sertraline (ZOLOFT) 50 MG tabletIndications :Anxiety TAKE 1 TABLET BY MOUTH EVERY DAY 30 tablet 11 08/11/20 24 Active LORazepam (ATIVAN) 0.5 MG tabletIndications :Anxiety Take 1 tablet (0.5 mg total) by mouth 2 (two) times a day as needed for anxiety. 16 tablet 10/17/19 25 Active losartan (COZAAR) 25 MG tabletIndications :Takotsubo cardiomyopathy TAKE 1 TABLET (25 MG TOTAL) BY MOUTH DAILY. 90 tablet 2 12/08/19 25 Active tirzepatide, weight loss, (ZEPBOUND) 5 mg/0.5 mL subcutaneous solution vialIndications:C lass 1 obesity due to excess calories without serious comorbidity with body mass index (BMI) of 32.0 to 32.9 in adult,Essential hypertension,Impa ired fasting glucose Inject 0.5 mL (5 mg total) under the skin every 7 days. 2 mL 03/16/20 25 Active tirzepatide, weight loss, (ZEPBOUND) 2.5 mg/0.5 mL subcutaneous solution vial Inject 0.5 mL (2.5 mg total) under the skin every 7 days. 2 mL 03/06/20 25 2024 Discontinued(R eorder) tirzepatide, weight loss, (ZEPBOUND) 2.5 mg/0.5 mL subcutaneous solution vial Inject 0.5 mL (2.5 mg total) under the skin every 7 days. 2 mL 03/14/20 25 2024 Discontinued tirzepatide, weight loss, (ZEPBOUND) 2.5 mg/0.5 mL subcutaneous solution vialIndications:C lass 1 obesity due to excess calories without serious comorbidity with body mass index (BMI) of 32.0 to 32.9 in adult,Essential hypertension,Impa ired fasting glucose Inject 0.5 mL (2.5 mg total) under the skin every 7 days. 2 mL 03/14/20 25 2024 Discontinued Active Problems Problem Noted Date Diagnosed [...] Encounters Date Type Department Care Team Description 04/06/2025 Orders Only [facility] Internal [facility] [address] [facility] [place] [address] Latisha Pinedo MD 04/06/2025 Telephone [facility] [address] [facility] [place] [address] Jewel Lopez MD Appointment 03/14/2025 Refill [facility] Internal [facility] [address] [facility] [place] [address] Jewel Lopez MD Medication Refill 03/06/2025 Refill [facility] [address] [facility] [place] [address] Jewel Lopez MD Medication Problem 01/13/2025 4:00 PM EDT Office Visit [facility] [address] [facility] [place] [address] Jewel Lopez MD Benign essential hypertension (Primary Dx); Liver function abnormality; Need for hepatitis B screening test; Snoring; Other fatigue 01/11/2025 Documentation [facility] [address] [facility] [place] [address] Jewel Lopez MD 01/06/2025 Orders Only [facility] Internal [facility] [address] [facility] [place] [address] Latisha Pinedo MD from Last 3 Months Immunizations Immunization Administration Dates Next Due COVID-19 (Pre-07/13) Pfizer [...] high school, GED, job training, learning the Kosovan language, technical skills, or developing parenting skills)? [...] or tries to control you? No 12/14/2023 Comments Unknown Sex and Gender Information Value Date Recorded Sex Assigned at Not on file Legal Sex Female 10:31 PM EDT Gender Identity Not on file Sexual Orientation Not on file Last Filed Vital Signs Vital Sign Reading Time Taken Comments Blood Pressure 148/86 01/13/2025 4:20 PM EDT Pulse 60 01/13/2025 4:20 PM EDT Temperature 36.3 C (97.4 F) 01/13/2025 4:20 PM EDT Respiratory Rate 20 01/13/2025 4:20 PM EDT [...] Care Team (Late st Contact Info) Description 04/11/2025 8:00 AM EDT Office Visit [facility] Medicine [address] [place] [address] Jayne Wang PA-C [address] [place] [address] 07/26/2025 4:00 PM EST Office Visit [facility] [address] [place] [address] Jewel Lopez MD [address] [place] [address] [email or web address] Health Maintenance Due Date Last Done Comments [...] age to complete this topic MENINGOCOCCAL VACCINES (B) Aged Out N o longer eligible based on patient's age to complete this topic Medical Devices Not on file Procedures Procedure Name Priority Date/Time Associated Diagnosis Comments OUTSIDE IMAGING Routine 04/05/2025 3:00 PM EDT OUTSIDE LAB Routine 04/05/2025 2:59 PM EDT OUTSIDE HDL Routine 01/04/2025 OUTSIDE POTASSIUM LEVEL Routine 01/04/2025 OUTSIDE SERUM CREATININE LEVEL Routine 01/04/2025 HM MAMMOGRAPHY Routine 10/12/2024 8:24 AM EST OUTSIDE GLUCOSE FASTING Routine 07/17/2023 PAP TEST Routine 04/24/2022 HM COLONOSCOPY FOR RESULT ENTRY ONLY Routine 04/26/2021 from Last 3 Months or Most Recently Relevant to Health Maintenance Results * Outside Imaging Report Only (04/05/2025 3:00 PM EDT) us Historical Provider MD FLORES XR CHEST Final Res ult * Outside Lab (04/05/2025 2:59 PM EDT) Result [facility] Provider MD LAB BLOOD ORDERABLES Orse l Result * Outside Potassium Level (01/04/2025) Potassium level - External 4.1 3.4 - 5.0 mmol/L EXTERNAL NON-INTERFACED REF LAB Result [facility] Provider MD LAB BLOOD ORDERABLES Rose l Result Performing Organization Address City/[facility]/ZIP Co de Phone Number EXTERNAL NON-INTERFACED REF LAB * (ABNORMAL) Outside Serum Creatinine Level (01/04/2025) Creatinine, serum - External 0.72(A) 0.8 - 1.3 mg/dL EXTERNAL NON-INTERFACED REF LAB Result [facility] Provider MD LAB BLOOD ORDERABLES Rose l Result Performing Organization Address [facility]/ZIP Co de Phone Number EXTERNAL NON-INTERFACED REF LAB * Outside HDL (01/04/2025) HDL - External 47 40 - 80 mg/dL EXTERNAL NON-INTERFACED REF LAB Result [facility] Provider LAB BLOOD ORDERABLES Rose l Result Performing Organization Address City/[facility]/ZIP Co de Phone Number EXTERNAL NON-INTERFACED REF LAB * HM MAMMOGRAPHY FOR RESULT ENTRY ONLY (10/12/2024 8:24 AM EST) Result [facility] Provider HEALTH MAINTENANCE Final Result * Outside Glucose,Fasting (07/17/2023) Glucose, fasting - External 98 65 - 99 mg/dL Result [facility] Provider LAB BLOOD ORDERABLES Rose l Result * Pap Test (04/24/2022) Result [facility] Jewel Lopez MD CYTOLOGY ORDERABLES Edited Re sult - Final * HM COLONOSCOPY FOR RESULT ENTRY ONLY (04/26/2021) Result [facility] Provider HEALTH MAINTENANCE Edited Result - Final from Last 3 Months or Most Recently Relevant to Health Maintenance Insurance [place] [employer]EFITS [employer] B[employer]ITS [employer] [address] [place] [address] [employer] [facility] [employer] Care Teams Electronic System Engineer Relationship Specialty Start Date End Date Jewel Lopez MD [address] [place] [id number] [email or web address] PCP - General Internal Medicine 05/14/21 Additional Source Comments The information contained in this document represents components of the legal health record. It is not the complete legal health record.[facility]
[2025-04-07 11:33] LABS: Anion Gap 13 (12-20); Blood Urea Nitrogen 10 mg/dL (9-16); Calcium 9.1 mg/dL (8.4-10.2); Carbon Dioxide 24 mmol/L (22-29); Chloride 109 mmol/L (96-108); Estimated Glomerular Filt Rate > 60; Potassium 3.6 mmol/L (3.3-5.1); Sodium 142 mmol/L (135-145)
== END 2025-04-07 09:06 | disposition home or self-care (01) ==
LOC: HO.LAB 09:05
PROVIDERS: PCP Internal Medicine; Referring Provider Internal Medicine
DX: E87.6 Hypokalemia (principal)
CPT/HCPCS: 36415; 80048

== ENCOUNTER 2025-04-10 08:18 | Outpatient (AMB) | payer OTHER, SELFPAY ==
--- OUTSIDE RECORDS SUMMARY | 2025-04-10 08:25 | XMS_ITS | Clinical Summary ---
Author Organization [facility] Address [address] [place] [address] [place] [phone] Phone Care Team Providers Care Chemical Inspector Name Role Phone Jewel Lopez MD Primary Care Provider [phone] Allergies Active Allergy Reactions Criticality Noted Date [...] Department Care Team Description 04/06/2025 Orders Only [facility] Internal Medicine [address] [facility] [place] [address] ProviderLatisha MD 04/06/2025 Telephone [facility] [address] [facility] [place] [address] Jewel Lopez MD Appointment 03/14/2025 Refill [facility] Internal [facility] [address] [facility] [place] [address] Jewel Lopez MD Medication Refill 03/06/2025 Refill [facility] Internal [facility] [address] [facility] [place] [address] Jewel Lopez MD Medication Problem 01/13/2025 4:00 PM EDT Office Visit [facility] [address] [facility] [place] [address] Jewel Lopez MD Benign essential hypertension (Primary Dx); Liver function abnormality; Need for hepatitis B screening test; Snoring; Other fatigue 01/11/2025 Documentation [facility] Internal [facility] [address] [facility] [place] [address] Jewel Lopez MD from Last 3 Months Immunizations Immunization [...] high school, GED, job training, learning the [place] language, technical skills, or developing parenting skills)? [...] Description 04/11/2025 8:00 AM EDT Office Visit [facility] Internal Medicine [address] [place], [place] [phone] Jayne Wang PA-C [address] [place] [address] [email or web address] 07/26/2025 4:00 PM EST Office Visit [facility] Internal Medicine [address] [place], [place] [phone] Jewel Lopez MD [address] [place], [place] [address] [email or web address] Health Maintenance Due Date Last Done Comments HEPATITIS C SCREENING 1990 HIV ONE-TIME SCREENING (18-65 YEARS) 1990 COLOGUARD 2017 FIT TEST 2017 FOBT 2017 SIGMOIDOSCOPY 2017 VIRTUAL COLONOSCOPY 2017 PNEUMOCOCCAL VACCINES (50+ years) (1 of 1 - PCV) 2022 ZOSTER VACCINES (1 of 2) 2022 COVID-19 VACCINE ( - season) 2024 07/16/2022, 07/19/2021, 09/28/2020, Additional history exists PAP SMEAR 04/24/2025 04/24/2022, 11/02/2019, 12/24/2017 BLOOD PRESSURE 07/15/2025 01/13/2025 CREATININE LEVEL [...] 01/04/2025 OUTSIDE SERUM CREATININE LEVEL Routine 01/04/2025 MAMMOGRAPHY Routine 10/12/2024 8:24 AM EST OUTSIDE GLUCOSE FASTING Routine 07/17/2023 PAP TEST Routine 04/24/2022 COLONOSCOPY FOR RESULT ENTRY ONLY Routine 04/26/2021 from Last 3 Months or Most Recently Relevant to Health Maintenance Results * Outside Imaging Report Only (04/05/2025 3:00 PM EDT) us Historical Provider IMG XR CHEST Final Res ult * Outside Lab (04/05/2025 2:59 PM EDT) us Historical Provider LAB BLOOD ORDERABLES Rose l Result * Outside Potassium Level (01/04/2025) Potassium level - External 4.1 3.4 - 5.0 mmol/L EXTERNAL NON-INTERFACED REF LAB Result [facility] Provider MD LAB BLOOD ORDERABLES Rose l Result Performing Organization Address City/[facility]/ZIP Co de Phone Number EXTERNAL NON-INTERFACED REF LAB * (ABNORMAL) Outside Serum Creatinine Level (01/04/2025) Creatinine, serum - External 0.72(A) 0.8 - 1.3 mg/dL EXTERNAL NON-INTERFACED REF LAB Result [facility] Provider MD LAB BLOOD ORDERABLES Rose l Result Performing Organization Address City/[facility]/ZIP Co de Phone Number EXTERNAL NON-INTERFACED REF LAB * Outside HDL (01/04/2025) HDL - External 47 40 - 80 mg/dL EXTERNAL NON-INTERFACED REF LAB Result [facility] Provider MD LAB BLOOD ORDERABLES Rose l Result Performing Organization Address [facility] de Phone Number EXTERNAL NON-INTERFACED REF LAB * HM MAMMOGRAPHY FOR RESULT ENTRY ONLY (10/12/2024 8:24 AM EST) Result [facility] Historical Provider HEALTH MAINTENANCE Final Result * Outside Glucose,Fasting (07/17/2023) Glucose, fasting - External 98 65 - 99 mg/dL Result [facility] Provider LAB BLOOD ORDERABLES Rose l Result * Pap Test (04/24/2022) Result [facility] Jewel Lopez MD CYTOLOGY ORDERABLES Edited Re sult - Final * HM COLONOSCOPY FOR RESULT ENTRY ONLY (04/26/2021) Result [facility] Historical Provider HEALTH MAINTENANCE Edited Result - Final from Last 3 Months or Most Recently Relevant to Health Maintenance Insurance [facility] [employer] [address] [place] [address] [employer] BENEFITS ADMINISTR[employer] Care Teams Chemical Inspector Relationship Specialty Start Date End Date Jewel Lopez MD [address] [place], [place] [email or web address] PCP - General Internal Medicine 05/14/21 Additional Source Comments The information contained in this document represents components of the legal health record. It is not the complete legal health record.[facility]
--- OUTSIDE RECORDS SUMMARY | 2025-04-10 08:25 | XMS_ITS | Patient Health Record ---
Author Organization [facility] Address [address] [place] [address] Care Team Providers Care Nurse Discharge Name Role Phone Jewel Lopez MD Primary [...] Problem Status W/U Status Risk Notes Problem 587241783 Colon cancer screening (Z12.11) Active confirmed Problem 75356788 Rectal bleeding (K62.5) Active confirmed Problem 26214120 Diarrhea (R19.7) Active confirmed Problem 005747068 Change in bowel habits (R19.4) Active confirmed Problem 979276132 Gastroesophageal reflux disease without esophagitis (K21.9) Active confirmed Problem Elevated liver enzymes level (099517258) Elevated LFTs (R94.5) Active confirmed Vital Signs Blood pressure diastolic 77 mm Hg 01/19/2025 Height 67.5 in 01/19/2025 Blood pressure systolic 111 mm Hg 01/19/2025 Weight 201 lbs 01/19/2025 BMI 31.01 kg/m2 01/19/2025 Encounters Encounter Location Date Provider Diagnosis [facility] [address] [place] [address] 01/19/2025 Rebel Matias Jr Elevated LFTs R94.5 ; Gastroesophageal reflux disease without esophagitis K21.9 and Colon cancer screening Z12.11 [facility] [address] [place] [address] 10/05/2024 Rebel Matias Jr Assessments Encounter Date [...] Name:Rebel rileydione Silverio, 01/25/2026 03:55:00 PM, [address], [address], [place], [address], Insurance Providers Payer Name Payer Address Payer Phone Subscriber Number Group Number Insured Name Patient Relationship to Insured Coverage Start Date Coverage End Date [employer] [place] [address] [address] [place] [address] [id number] PARMINDER GARDUNO Self - patient is [...]
[2025-04-10 08:29] VITALS: BP 120/80; PULSE 68; BMI 28.6
--- NOTE | 2025-04-10 08:29 | MHC.OFFVIS ---
Vital Signs 04/10/25 08:29 Height 5 ft 7.5 in Weight 185 lb 10.067 oz BMI 28.6 BP 120/80 Blood Pressure Location Lt brachial Position Sitting Pulse 68 Pulse Source Monitor Intake Visit Reasons: [facility] new afib Parachute Repairer Required: No Allergies azithromycin (AZITHROMYCIN) Allergy (Intermediate, Verified 04/10/25 08:32) ABDOMINAL PAIN Penicillins (PENICILLINS) Allergy (Unknown, Verified 04/10/25 08:32) ? RXN BABY - ? HIVES Medication List - Last Reconciled 04/10/25 by Stella Chacko NP-C esomeprazole magnesium 40 mg PO DAILY fluocinonide 0.1% 1 appl topical BID PRN 3 days losartan 25 mg PO DAILY metoprolol succinate ER 50 mg PO DAILY sertraline 50 mg PO DAILY HPI HPI [facility] [place], [place] new afib: Details: Lizzy is a 54-year-old female past medical history of hypertension, GERD, paroxysmal AFib status post ablation 2014, takotsubo cardiomyopathy with recent echo showing EF 61% who was seen at [facility] emergency room on 04/05/2025 for heart palpitations. Notes indicate that EMS EKG was concerning for atrial fibrillation however EKG once in the ER department showed sinus rhythm. Her lab work showed mild hypokalemia. She was instructed to follow-up with her conference services director. Today she reports that she has not had recurrent heart palpitations like the atrial fibrillation. She has reported heart palpitations in the past but states this was different. She has a watch which did tell her she was in AFib. No associated symptoms. She is denying chest discomfort at rest or with activity. No shortness of breath, PND, orthopnea or edema. No lightheadedness, presyncope, syncope, falls. She recently started on GLP 1 medication and has not been eating normally. She has nausea and lack of appetite. She believes this may be the cause of her PAF. [facility] Medical History Paroxysmal atrial fibrillation COVID-19 vaccine series completed Arrhythmia GERD (gastroesophageal reflux disease) Mitral valve prolapse Surgical History History of cardiac radiofrequency ablation H/O colonoscopy History of esophagogastroduodenoscopy (EGD) Family History Mother No problems noted. Father No problems noted. Social History Unable to assess alcohol history related to: Unknown Alcohol intake: current Patient Tobacco Use Status: Former Tobacco user Review of Systems Const All systems reviewed & are unremarkable except as noted in HPI and below Reports weight loss ENT Denies dizziness Card Denies chest pain, Denies chest pain at rest, Denies chest pain with activity, Denies rapid heart rate, Denies pedal edema, Denies edema, Denies leg edema, Denies lightheadedness, Denies palpitations, Denies dyspnea, Denies dyspnea on exertion and Denies orthopnea Resp Denies cough, Denies dyspnea and Denies dyspnea on exertion GI Denies hematochezia and Denies change in stool character Musc Denies abnormal gait, Denies limited range of motion, Denies muscle cramps, Denies muscle weakness, Denies numbness, Denies radiating pain into limb, Denies stiffness and Denies tingling Neuro Denies abnormal gait, Denies dizziness, Denies numbness and Denies tingling Endo Denies palpitations Physical Exam Vital Signs: Last Vital Signs Pulse 68 04/10/25 08:29 BP 120/80 04/10/25 08:29 BMI result Body Mass Index 28.6 Const General: cooperative, healthy appearing, comfortable and no acute distress Orientation/consciousness: patient oriented x3 Neck Neck: Yes normal visual inspection Resp Effort & Inspection: normal respiratory effort Auscultation: clear to auscultation bilaterally, no crackles, no rales, no rhonchi and no wheezes Cardio Rate: regular rate Rhythm: regular rhythm Heart sounds: S1 normal heart sound present, S2 normal heart sound present, no gallops, no murmurs and no rubs Neuro General: patient oriented x3 Extrem General: Yes normal to inspection Psych Appearance: grossly normal Mental Status: mental status grossly normal Speech and movement: Normal speech and movement present Office Procedures EKG Details: Today, read by me normal sinus rhythm, rate 68, Qtc 429ms [id number], Complete Assessment & Plan Assessment & Plan (1) Paroxysmal atrial fibrillation: Comment: Status post ablation Code(s): I48.0 - Paroxysmal atrial fibrillation Category: Medical Plan: History of paroxysmal atrial fibrillation status post ablation 2014. [facility] [place] 04/05/2025 for heart palpitations. She tells me that EMS told her she had AFib and her daughter who is a cardiac nurse at [facility] stated her telemetry showed AFib. EKG once done at [facility] showed sinus rhythm. No strips available for my review confirming atrial fibrillation. At this time she continues on her usual metoprolol 50 mg daily. Eliquis has been ordered however she did not start it. She believes the episode was related to hypokalemia. She has been eating high potassium foods. Will check BMP. Will hold off on Eliquis until recurrent paroxysmal AFib is confirmed. Instructed her to get a Yoke mobile device to help monitor her rhythm. Will check Holter monitor. Plan to send back to EP for repeat ablation if PAF confirmed. She is agreeable to this plan. Cardiology follow-up 3 months, sooner if needed. (2) Palpitations: Code(s): R00.2 - Palpitations Category: Medical Plan: As above (3) Takotsubo syndrome: Code(s): I51.81 - Takotsubo syndrome Category: Medical Plan: History of takotsubo cardiomyopathy with normalization of EF. Last echo done 01/27/2025 showed EF 61%, no valve abnormalities and no regional wall motion abnormalities. She continues on metoprolol and losartan for neurohormonal modulation. No signs of heart failure on examination. (4) HTN (hypertension): Code(s): I10 - Essential (primary) hypertension Category: Medical Plan: Blood pressure goal less than 130/80. Well controlled at this time. No medication changes made. (5) History of cardiac radiofrequency ablation: Comment: 2014-for AFIB Code(s): Z98.890 - Other specified postprocedural states Category: Surgical Plan: As above (6) Hospital discharge follow-up: Code(s): Z09 - Encounter for follow-up examination after completed treatment for conditions other than malignant neoplasm Category: Medical Plan: [facility] [place] notes reviewed Plan Time spent on chart review, documentation, interview, assessment Orders: Orders ECG 3 day holter monitor Today I48.0 - Paroxysmal atrial fibrillation Basic Metabolic Panel Today I48.0 - Paroxysmal atrial fibrillation Coding Level of Care Code Est Pt Level 4 (74965) Complex EM visit Add On G2211 Diagnoses Paroxysmal atrial fibrillation I48.0 Palpitations R00.2 Takotsubo syndrome I51.81 HTN (hypertension) I10 History of cardiac radiofrequency ablation Z98.890 Hospital discharge follow-up Z09 CPT Codes EKG - CPT: 35031-Gtaitipwrssnfbtlb, Complete ([id number]) Time Spent (min) 28
== END 2025-04-10 09:06 | disposition home or self-care (01) ==
LOC: HO.HCS 08:19
PROVIDERS: PCP Internal Medicine; Visit Provider Nurse Practitioner Family
DX: I48.0 Paroxysmal atrial fibrillation (principal); R00.2 Palpitations; I51.81 Takotsubo syndrome; I10 Essential (primary) hypertension; Z98.890 Other specified postprocedural states; Z09 Encounter for follow-up examination after completed treatment for conditions other than malignant neoplasm
CPT/HCPCS: 93010; 99214

== ENCOUNTER → 2025-04-10 08:18 | Outpatient (BNVA) | payer OTHER, SELFPAY | PROVIDERS: PCP Internal Medicine; Visit Provider Nurse Practitioner Family | DX: I48.0 Paroxysmal atrial fibrillation (principal) | CPT/HCPCS: 93005 ==

== ENCOUNTER → 2025-05-02 07:59 | Outpatient (REF) | payer OTHER, SELFPAY ==
--- NOTE | 2025-05-02 08:02 | HM_ITS ---
Conclusion: 1. Patient was monitored for total period of 3 days 2. Baseline was normal sinus rhythm with average heart of 67 beats per minute 3. Rare to occasional PACs and PVCs noted with 1 3 beat jose of nonsustained VT at 153 beats per minute 4. No significant pauses noted 5. Patient marked the counter 2 times without associated symptoms correlating with isolated PVCs MTDD
--- OUTSIDE RECORDS SUMMARY | 2025-05-02 08:03 | XMS_ITS | Clinical Summary ---
Author Organization [facility] Address [address] [place] [phone] Phone Care Team Providers Care Vehicle Safety Inspector Name Role Phone Jewel Lopez MD Primary Care Provider [phone] Allergies Active Allergy Reactions Criticality Noted Date Comments Azithromycin GI Upset 05/24/2021 Lisinopril Cough 12/14/2023 Penicillins Unknown 09/15/2017 Medications metoprolol succinate (TOPROL-XL) 50 MG 24 hr tabletIndications: hypertension Take 50 mg by mouth daily. Indications: high blood pressure Active esomeprazole (NEXIUM) 40 MG capsule Take 40 capsules by mouth daily. 03/11/20 21 Active clobetasol (TEMOVATE) 0.05 % cream Apply 1 application. topically 2 (two) times a day as needed. 08/08/20 22 Active cholecalciferol, vitamin D3, (VITAMIN D3 ORAL)Indications:p t will next time, not sure of dose Take 3 gummies once daily Indications: pt will next time, not sure of dose Active sertraline (ZOLOFT) 50 MG tabletIndications: Anxiety TAKE 1 TABLET BY MOUTH EVERY DAY 30 tablet 11 08/11/20 24 Active LORazepam (ATIVAN) 0.5 MG tabletIndications: Anxiety Take 1 tablet (0.5 mg total) by mouth 2 (two) times a day as needed for anxiety. 16 tablet 10/17/19 25 Active losartan (COZAAR) 25 MG tabletIndications: Takotsubo cardiomyopathy TAKE 1 TABLET (25 MG TOTAL) BY MOUTH DAILY. 90 tablet 2 12/08/19 25 Active tirzepatide, weight loss, (ZEPBOUND) 5 mg/0.5 mL subcutaneous solution vialIndications:Cl ass 1 obesity due to excess calories without serious comorbidity with body mass index (BMI) of 32.0 to 32.9 in adult,Essential hypertension,Impai red fasting glucose Inject 0.5 mL (5 mg total) under the skin every 7 days. 2 mL 04/21/20 25 Active tirzepatide, weight loss, (ZEPBOUND) 5 mg/0.5 mL subcutaneous solution vialIndications:Cl ass 1 obesity due to excess calories without serious comorbidity with body mass index (BMI) of 32.0 to 32.9 in adult,Essential hypertension,Impai red fasting glucose Inject 0.5 mL (5 mg total) under the skin every 7 days. 2 mL 03/16/20 25 025 Discontin ued(Reord er) Active Problems Problem Noted Date Diagnosed Date Hypokalemia 04/11/2025 Assessment & Plan (04/11/2025 8:28 AM EDT): Hypokalemia noted during her ER visit with a potassium of 3.0. She was replenished with oral potassium and had repeat lab work which showed a potassium of 3.6. Will obtain a BMP to reassess the potassium levels. MVP (mitral valve prolapse) 12/24/2019 PAC (premature atrial contraction) 12/24/2019 Paroxysmal atrial fibrillation 12/24/2019 Assessment & Plan (04/11/2025 8:28 AM EDT): History of A-fib status post ablation following with [facility] cardiology experience multiple episodes of atrial fibrillation with RVR and ultimately went to [facility] ER. She was evaluated but no further interventions were done as her symptoms had resolved. They recommended starting her on Eliquis, however they wanted to hold off until she saw her floating derrick operator. She saw [facility] cardiology on 04/10/2025, although we do not have these records, for which initiating Eliquis and doing an EP study to determine if ablation is indicated were recommended, however after reviewed from her floating derrick operator, none of this was initiated. We discussed in the office today regarding the importance of Eliquis for long-term atrial fibrillation to prevent a clot, [id number] 2 score of 3. However, per patient, it sounds like they would like to do another ablation as it worked for her in the past which would mean that she may not need Eliquis depending on when this is scheduled. She is planning on going to [facility] to get her rhythm strips which prove A-fib with RVR and bring that to her cardiology office. Will try to obtain cardiology records from the office visit yesterday. Will hold off on sending Eliquis and defer to cardiology as an ablation may be indicated. PVCs (premature ventricular contractions) 2019 SVT (supraventricular [...] Encounters Date Type Department Care Team Description 04/20/2025 Refill [facility] [address] [place] [address] Jewel Lopez MD Medication Refill; Medication Problem 04/11/2025 8:00 AM EDT Office Visit [facility] [address] [place] [address] Wang, Jayne, PA-C Need for hepatitis C screening test (Primary Dx); Screening for human immunodeficiency virus; Hypokalemia; Paroxysmal atrial fibrillation 04/11/2025 Orders Only [facility] [address] [facility] [place] [place] [address] Latisha Pinedo MD 04/06/2025 Orders Only [facility] [address] [facility] [place] [place] [address] Latisha Pinedo MD 04/06/2025 Telephone [facility] [address] [facility] [place] [address] Jewel Lopez MD Appointment 03/14/2025 Refill [facility] [address] [facility] [place] [address] Jewel Lopez MD Medication Refill 03/06/2025 [facility]ill [facility] [address] [facility] [address] Jewel Lopez MD Medication Problem from Last 3 Months Immunizations Immunization Administration Dates Next Due COVID-19 (Pre-07/13) Pfizer Vaccine, mRNA, PF 09/28/2020,09/07/2020 INFLUENZA, SPLIT VIRUS, TRIVALENT PF 06/22/2024, 05/28/2015 INFLUENZA, SPLIT VIRUS, TRIV ALENT W/ PRESERVATIVE IM 07/04/2020,07/22/2016 Influenza Quadrivalent MDCK Preservative Free IM 07/02/2018 Influenza Quadrivalent Prese rvative Free IM 07/08/2023,07/08/2022,07/19/2021,2019,07/06/2019 Influenza Quadrivalent w/ Preservative IM 07/03/2017 Td, unspecified formulation 06/18/2010 Tdap 06/15/2021 Family [...] high school, GED, job training, learning the Danish language, technical skills, or developing parenting skills)? [...] Sign Reading Time Taken Comments Blood Pressure 120/76 04/11/2025 7:58 AM EDT Pulse 72 04/11/2025 7:58 AM EDT Temperature 36.1 C (97 F) 04/11/2025 7:58 AM EDT Respiratory Rate 20 01/13/2025 4:20 PM EDT Oxygen Saturation 98% 04/11/2025 7:58 AM EDT Inhaled Oxygen Concentration - - Weight 84.4 kg (186 lb) 04/11/2025 7:58 AM EDT Height 169.8 cm (5' 6.85 ) 04/11/2025 7:58 AM ED T Body Mass Index 29.26 04/11/2025 7:58 AM EDT Plan of Treatment Upcoming Encounters Date Type Department Care Team (Late st Contact Info) Description 07/26/2025 4:00 PM EST Office Visit [facility] [address] [place] [address] Jewel Lopez MD [address] [place] [address] [email or web address] Health Maintenance Due Date Last Done Comments HEPATITIS C SCREENING 1990 HIV ONE-TIME SCREENING (18-65 YEARS) 1990 COLOGUARD 2017 FIT TEST 2017 FOBT 2017 SIGMOIDOSCOPY 2017 VIRTUAL COLONOSCOPY 2017 PNEUMOCOCCAL VACCINES (50+ years) (1 of 1 - PCV) 2022 ZOSTER VACCINES (1 of 2) 2022 COVID-19 VACCINE ( season) 2024 07/16/2022, 07/19/2021, 09/28/2020, Additional history exists PAP SMEAR 04/24/2025 04/24/2022, 11/0 02/2019, 12/24/2017 BLOOD PRESSURE 10/12/2025 04/11/2025 CREATININE LEVEL 01/04/2026 01/04/2025, 06/2025, 07/17/2023, Additional history exists POTASSIUM LEVEL 01/04/2026 01/04/2025, 09/21, 07/17/2023 DEPRESSION SCREENING 01/12/2026 01/12/2025 COLONOSCOPY 04/26/2026 04/26/2021 COLORECTAL CANCER SCREENING 04/26/2026 MAMMOGRAM 10/12/2026 10/12/2024, 09/21, 07/04/2022, Additional history exists SCREENING FOR DIABETES 09/30/2027 09/30/2024, 2022 LIPID PANEL 01/04/2030 01/04/2025, 12/20, 01/04/2025, Additional history exists Adult Td,Tdap Booster 06/15/2031 06/15/2021, 010 SMOKING STATUS SCREENING (Once After 26 Yrs) Completed 04/11/2025 HEPATITIS A VACCINES Aged Out No long [...] Date/Time Associated Diagnosis Comments OUTSIDE LAB Routine 04/07/2025 9:10 AM EDT OUTSIDE IMAGING Routine 04/05/2025 3:00 PM EDT [...] to Health Maintenance Results * Outside Lab (04/07/2025 9:10 AM EDT) Only the most recent of2 resultswithin the time period is included. [facility] Provider MD LAB BLOOD ORDERABLES Rose l Result * Outside Imaging Report Only (04/05/2025 3:00 PM EDT) [facility] Provider IMG XR CHEST Final Res ult * Outside Potassium Level (01/04/2025) Potassium level - External 4.1 3.4 - 5.0 mmol/L EXTERNAL NON-INTERFACED REF LAB Result [facility] Provider MD LAB BLOOD ORDERABLES Rose l Result Performing Organization Address [facility] Co de Phone Number EXTERNAL NON-INTERFACED REF LAB * (ABNORMAL) Outside Serum Creatinine Level (01/04/2025) Creatinine, serum - External 0.72(A) 0.8 - 1.3 mg/dL EXTERNAL NON-INTERFACED REF LAB Result [facility] Provider MD LAB BLOOD ORDERABLES Rose l Result EXTERNAL NON-INTERFACED REF LAB * Outside HDL (01/04/2025) HDL - External 47 40 - 80 mg/dL EXTERNAL NON-INTERFACED REF LAB Result [facility] Provider MD LAB BLOOD ORDERABLES Rose l Result Performing Organization Address City/[facility]/ZIP Co de Phone Number EXTERNAL NON-INTERFACED REF LAB * HM MAMMOGRAPHY FOR RESULT ENTRY ONLY (10/12/2024 8:24 AM EST) Historical Shahida IGLESIAS HEALTH MAINTENANCE Final Result * Outside Glucose,Fasting (07/17/2023) Glucose, fasting - External 98 65 - 99 mg/dL Result [facility] Historical Shahida IGLESIAS LAB BLOOD ORDERABLES Rose l Result * Pap Test (04/24/2022) Jewel Lopez MD CYTOLOGY ORDERABLES Edited Re sult - Final * HM COLONOSCOPY FOR RESULT ENTRY ONLY (04/26/2021) Historical Provider HEALTH MAINTENANCE Edited Result - Final from Last 3 Months or Most Recently Relevant to Health Maintenance Insurance [employer] [place] [address] [address] [place] [address] B[employer]EFITS [employer] CRUCIBLE [employer] B[employer]EFITS [employer]MIN[employer] [facility] BENEFITS ADMINISTRATORS Care Teams Vehicle Safety Inspector Relationship Specialty Start Date End Date Jewel Lopez MD [address] [place] [phone] [email or web address] PCP - General Internal Medicine 05/14/21 Additional Source Comments The information contained in this document represents components of the legal health record. It is not the complete legal health record.[facility]
--- OUTSIDE RECORDS SUMMARY | 2025-05-02 08:03 | XMS_ITS | Patient Health Record ---
Author Organization [facility] Address [address] [place] [address] Care Team Providers Care Mold Car Pusher Name Role Phone Jewel Lopez MD Primary [...] Problem Status W/U Status Risk Notes Problem 985826004 Colon cancer screening (Z12.11) Active confirmed Problem 72805329 Rectal bleeding (K62.5) Active confirmed Problem 49175928 Diarrhea (R19.7) Active confirmed Problem 849975585 Change in bowel habits (R19.4) Active confirmed Problem 910698422 Gastroesophageal reflux disease without esophagitis (K21.9) Active confirmed Problem Elevated liver enzymes level (043740622) Elevated LFTs (R94.5) Active confirmed Vital Signs Blood pressure diastolic 77 mm Hg 01/19/2025 Height 67.5 in 01/19/2025 Blood pressure systolic 111 mm Hg 01/19/2025 Weight 201 lbs 01/19/2025 BMI 31.01 kg/m2 01/19/2025 Encounters Encounter Location Date Provider Diagnosis [facility] [address] [place] [address] 01/19/2025 Rebel Matias Jr Elevated LFTs R94.5 ; Gastroesophageal reflux disease without esophagitis K21.9 and Colon cancer screening Z12.11 [facility] [address] [place] [address] 10/05/2024 Rebel Matias Jr Assessments Encounter Date [...] Name:Rebel rileydione Silverio, 01/25/2026 03:55:00 PM, [address], [address], [place], [address], Insurance Providers Payer Name Payer Address Payer Phone Subscriber Number Group Number Insured Name Patient Relationship to Insured Coverage Start Date Coverage End Date [employer] OF [place] [address] [address] [place] [address] [id number] PARMINDER GRADUNO Self - patient is the insured Medical [...]
== END ==
LOC: HO.CARD 07:59
PROVIDERS: PCP Internal Medicine; Visit Provider Nurse Practitioner Family
DX: I48.0 Paroxysmal atrial fibrillation (principal)
CPT/HCPCS: 93242

== ENCOUNTER → 2025-05-02 08:02 | Outpatient (BNV) | payer OTHER, SELFPAY | PROVIDERS: PCP Internal Medicine; Visit Provider Internal Medicine Cardiovascular Disease | DX: I49.3 Ventricular premature depolarization (principal); I49.1 Atrial premature depolarization | CPT/HCPCS: 93244 ==

== ENCOUNTER 2025-05-13 10:11 | Outpatient (REF) | payer OTHER, SELFPAY ==
[2025-05-13 11:19] LABS: Anion Gap 13 (12-20); Blood Urea Nitrogen 10 mg/dL (9-16); Calcium 9.4 mg/dL (8.4-10.2); Carbon Dioxide 23 mmol/L (22-29); Chloride 110 mmol/L (96-108); Estimated Glomerular Filt Rate > 60; Potassium 3.7 mmol/L (3.3-5.1); Sodium 142 mmol/L (135-145)
== END 2025-05-13 10:12 | disposition home or self-care (01) ==
LOC: HO.LAB 10:11
PROVIDERS: PCP Internal Medicine
DX: E87.6 Hypokalemia (principal)
CPT/HCPCS: 36415; 80048

== ENCOUNTER 2025-07-17 14:48 | Outpatient (AMB) | payer OTHER, SELFPAY ==
--- OUTSIDE RECORDS SUMMARY | 2024-10-06 11:35 | XMS_ITS ---
Author Organization [facility] Address [address] [place] [address] Care Team Providers Care Rivet Driver Name Role Phone Jewel Lopez MD Primary Care Provider Unavaila robbie Matias Jr, Rebel Palomo [phone] REASON FOR VISIT GERD Encounters Encounter Location Date Provider Diagnosis [facility] [address] [place] [address] 10/06/2024 Rebel Matias Jr Plan Of Treatment Next Appt Details Provider Name:Rebel raza Jr, 01/25/2026 03:55:00 PM, [address], [address], [place], [address], Progress Notes * PARMINDER YANG MDOB:[birth year] (54 yo F)Acc No.[id number]:10/06/2024 Progress Notes Patient: Pantera LOREDOREGINA PARMINDER Mott Provider: Ab Matias MD :1970 A ge:54 Y S ex:Female Date:10/06/2024 Address:[address] [place] [address] Pcp:Jewel Lopez MD Subjective: * Chief Complaints: * 1 . GERD. * Medical History: Objective: * Vitals: Assessment: Plan: * Treatment: * * The named appointment provid er may or may not be the originator of this progress note, and it is not deemed complete until electronically signed by the appointment provider. Sign off status: Pending * Provider: Ab Matias MD Date: 0 10/06/2024 Generated for Keo coulter/Mamadou/Poloitting on: 1 06:16 PM EDT
--- NOTE | 2025-07-17 15:01 | MHC.OFFVIS ---
Vital Signs 07/17/25 15:02 Height 5 ft 7.5 in Weight 156 lb 8.451 oz BMI 24.2 BP 120/80 Blood Pressure Location Lt brachial Position Sitting Pulse 63 Intake Visit Reasons: f/up per DC Intake Note: Follow-up with ekg dx afib feeling ok Emanations Analysis Technician Required: No Allergies azithromycin (AZITHROMYCIN) Allergy (Intermediate, Verified 04/10/25 08:32) ABDOMINAL PAIN Penicillins (PENICILLINS) Allergy (Unknown, Verified 04/10/25 08:32) ? RXN BABY - ? HIVES Medication List - Last Reconciled 07/17/25 by Naveen Avitia MD apixaban (Eliquis) 5 mg PO BID esomeprazole magnesium 40 mg PO DAILY flecainide 150 mg PO DAILY PRN fluocinonide 0.1% 1 appl topical BID PRN 3 days losartan 25 mg PO DAILY metoprolol succinate ER 50 mg PO DAILY sertraline 50 mg PO DAILY tirzepatide (weight loss) (Zepbound) 7.5 mg subcut QWEEK HPI Comments Details: Lizzy comes for follow-up. She is currently on GLP 1 antagonist with the about in his lost about 40 +lb. She says she is feeling really good. She has not had any episodes of atrial fibrillation. No prolonged palpitation. No lightheadedness, syncope. Blood pressure remains controlled. No bleeding issues or neurologic events. Takes all her medications regularly. [facility] Medical History Paroxysmal atrial fibrillation COVID-19 vaccine series completed Arrhythmia GERD (gastroesophageal reflux disease) Mitral valve prolapse Surgical History History of cardiac radiofrequency ablation H/O colonoscopy History of esophagogastroduodenoscopy (EGD) Family History Mother No problems noted. Father No problems noted. Social History Alcohol intake: current Patient Tobacco Use Status: Former Tobacco user Review of Systems Const Denies chills, Denies fatigue, Denies fever(s), Denies frequent falls, Denies weakness, Denies weight gain and Denies weight loss ENT Denies dizziness Card Denies chest pain, Denies leg edema, Denies lightheadedness, Denies palpitations, Denies dyspnea, Denies dyspnea on exertion, Denies orthopnea and Denies other (loss of consciousness) Resp Denies cough, Denies dyspnea and Denies dyspnea on exertion GI Denies hematochezia and Denies change in stool character Musc Denies abnormal gait, Denies muscle weakness, Denies numbness, Denies radiating pain into limb and Denies tingling Neuro Denies abnormal gait, Denies dizziness, Denies frequent falls, Denies numbness, Denies tingling and Denies weakness Endo Denies fatigue and Denies palpitations Physical Exam Vital Signs: Last Vital Signs Pulse 63 07/17/25 15:02 BP 120/80 07/17/25 15:02 BMI result Body Mass Index 24.2 Const General: cooperative, comfortable, no acute distress, alert, awake and anxious Nutritional Appearance: overweight Orientation/consciousness: patient oriented x3 Limitations: no limitations Neck Neck: Yes trachea midline, Yes supple and Yes no JVD Resp Effort & Inspection: normal respiratory effort Auscultation: clear to auscultation bilaterally Cardio Jugular venous distension: no JVD Palpation: normal PMI Rate: regular rate Rhythm: regular rhythm Heart sounds: S1 normal heart sound present, S2 normal heart sound present, no click, no gallops, no murmurs and no rubs GI Auscultation: normal bowel sounds Neuro General: patient oriented x3 and no focal motor deficits Extrem General: Yes no clubbing, cyanosis or edema Psych Appearance: grossly normal Affect: Anxious affect present Office Procedures EKG Details: EKG shows normal sinus rhythm nonspecific STT wave changes which are old. [id number]-[id number], Complete Assessment & Plan Assessment & Plan (1) Paroxysmal atrial fibrillation: Comment: Status post ablation Code(s): I48.0 - Paroxysmal atrial fibrillation Category: Medical Plan: Paroxysmal atrial fibrillation which has done well with rhythm control approach. She is doing well status post ablation. Has not had to take any recurrent flecainide therapy and has had no recurrent episodes. Weight loss has significant role to play as well. Continue full oral anticoagulation, currently on Eliquis 5 mg b.i.d.. Semi annual renal function test should be pursued. Continue pill in the pocket approach flecainide. Continue metoprolol therapy. Advised stress mitigation strategies. (2) HTN (hypertension): Code(s): I10 - Essential (primary) hypertension Category: Medical Plan: Hypertension which is currently well optimized on low-dose losartan and metoprolol therapy. Blood pressure continues to goal over may need to consider stopping losartan therapy. Continue regular physical activity. Low-salt diet was discussed. Advised to maintain activity level as tolerated. Stress mitigation was suggested. Follow up in the clinic in 1 year's time, sooner PRN. Thank you for allowing me to partake in her care Coding Level of Care Code Est Pt Level 4 (69811) Complex EM visit Add On G2211 Diagnoses Paroxysmal atrial fibrillation I48.0 HTN (hypertension) I10 CPT Codes EKG - CPT: 49507-[id number], Complete ([id number])
[2025-07-17 15:02] VITALS: BP 120/80; PULSE 63; BMI 24.2
--- OUTSIDE RECORDS SUMMARY | 2025-07-17 18:16 | XMS_ITS | Clinical Summary ---
Author Organization [facility] Address [address] [place] [id number] Phone Care Team Providers Care Monitoring Tech Name Role Phone Jewel Lopez MD Primary Care Provider [phone] Allergies Active Allergy Reactions Criticality Noted Date Comments Azithromycin GI Upset 05/24/2021 Lisinopril Cough 12/14/2023 Penicillins Unknown 09/15/2017 Medications metoprolol succinate (TOPROL-XL) 50 MG 24 hr tabletIndications :hypertension Take 50 mg by mouth daily. Indications: [...] DAILY. 90 tablet 2 12/08/19 25 Active ZEPBOUND 7.5 mg/0.5 mL subcutaneous solution vialIndications:C lass 1 obesity due to excess calories without serious comorbidity with body mass index (BMI) of 32.0 to 32.9 in adult INJECT 0.5 ML (7.5 MG) UNDER THE SKIN ONCE WEEKLY (0.5ML= 50 UNITS) 2 mL 07/10/20 25 Active tirzepatide, weight loss, (ZEPBOUND) 7.5 mg/0.5 mL subcutaneous solution vialIndications:C lass 1 obesity due to excess calories without serious comorbidity with body mass index (BMI) of 32.0 to 32.9 in adult Inject 0.5 mL (7.5 mg total) under the skin every 7 days. 2 mL 06/14/20 25 025 Discontinued Active Problems Problem Noted Date Diagnosed [...] of A-fib status post ablation following with [facility] cardiology experience multiple episodes of atrial fibrillation with RVR and ultimately went to [facility] ER. She was evaluated but no further interventions were done as her symptoms had resolved. They recommended starting her on Eliquis, however they wanted to hold off until she saw her hood fitter. She saw [facility] cardiology on 04/10/2025, although we do not have these records, for which initiating Eliquis and doing an EP study to determine if ablation is indicated were recommended, however after reviewed from her hood fitter, none of this was initiated. We discussed in the office today regarding the importance of Eliquis for long-term atrial fibrillation to prevent a clot, [id number] 2 score of 3. However, per patient, it sounds like they would like to do another ablation as it worked for her in the past which would mean that she may not need Eliquis depending on when this is scheduled. She is planning on going to [facility] to get her rhythm strips which [...] Encounters Date Type Department Care Team Description 07/10/2025 Refill [facility] Internal Medicine [address] [place] [address] Jewel Lopez MD Medication Refill 06/14/2025 Refill [facility] Internal Medicine [address] [facility] [place] [address] Jewel Lopez MD Medication Refill 05/23/2025 Refill [facility] [address] [facility] [place] [address] Jewel Lopez MD Medication Refill; Medication Problem 05/16/2025 Telephone [facility] Internal Medicine [address] [facility] [place] [address] Jewel Lopez MD iron labs 05/15/2025 Orders Only [facility] Internal [facility] [address] [facility] [place] [address] ProviderLatisha MD 04/20/2025 Refill [facility] Internal Medicine [address] [facility] [place] [address] Jewel Lopez MD Medication Refill; Medication Problem from Last 3 Months Immunizations [...] high school, GED, job training, learning the Guamanian language, technical skills, or developing parenting skills)? [...] 4:20 PM EDT Oxygen Saturation 98% 04/11/2025 7:5 8 AM EDT Inhaled Oxygen Concentration - - Weight 76.7 kg (169 lb) 05/23/2025 10:5 6 AM EDT Pt reports weight taken from home. Height 169.8 cm (5' 6.85 ) 04/11/2025 7 :58 AM EDT Body Mass Index 26.59 04/11/2025 7:58 AM EDT Plan of Treatment Upcoming Encounters Date Type Department Care Team (Late st Contact Info) Description 07/26/2025 4:00 PM EST Office Visit [facility] Internal Medicine [address] [place] [address] Jewel Lopez MD [address] [place] [address] [email or web address] Due Date Last Done Comments HEPATITIS C SCREENING 1990 HIV ONE-TIME SCREENING (18-65 YEARS) 1990 COLOGUARD 2017 FIT TEST 2017 FOBT 2017 SIGMOIDOSCOPY 2017 VIRTUAL COLONOSCOPY 2017 PNEUMOCOCCAL VACCINES (50+ years) (1 of 1 - PCV) 2022 ZOSTER VACCINES (1 of 2) 2022 INFLUENZA VACCINE (#1) 2025 , 07/08/2023, 07/08/2022, Additional history exists PAP SMEAR 04/24/2025 04/24/2022, 11/0 02/2019, 12/24/2017 COVID-19 VACCINE ( season) 2025 07/16/2022, 07/19/2021, 09/28/2020, Additional history exists BLOOD PRESSURE 10/12/2025 04/11/2025 DEPRESSION SCREENING 01/12/2026 01/12/2025 COLONOSCOPY 04/26/2026 04/26/2021 COLORECTAL CANCER SCREENING 04/26/2026 CREATININE LEVEL 05/13/2026 05/13/2025, , 09/30/2024, Additional history exists POTASSIUM LEVEL 05/13/2026 05/13/2025, 12/20, 09/30/2024, Additional history exists MAMMOGRAM 10/12/2026 10/12/2024, 09/21, 07/04/2022, Additional history exists SCREENING FOR DIABETES 09/30/2027 09/30/2024, 2022 LIPID PANEL 01/04/2030 01/04/2025, 12/20, 01/04/2025, Additional history exists Adult Td,Tdap Booster 06/15/2031 06/15/2021, 010 RSV VACCINE (1 - 1-dose 75+ series) 2047 SMOKING STATUS SCREENING (Once After 26 Yrs) [...] Procedure Name Priority Date/Time Associated Diagnosis Comments BASIC METABOLIC PANEL Routine 05/13/2025 2:10 PM EDT OUTSIDE HDL Routine 01/04/2025 HM MAMMOGRAPHY Routine 10/12/2024 8:24 AM EST OUTSIDE GLUCOSE FASTING Routine 07/17/2023 PAP TEST Routine 04/24/2022 HM COLONOSCOPY FOR RESULT ENTRY ONLY Routine 04/26/2021 from Last 3 Months or Most Recently Relevant to Health Maintenance Results * Basic metabolic panel (05/13/2025 2:10 PM EDT) Result [facility] Provider LAB BLOOD ORDERABLES Rose l Result * Outside HDL (01/04/2025) HDL - External 47 40 - 80 mg/dL EXTERNAL NON-INTERFACED REF LAB Result [facility] Provider LAB BLOOD ORDERABLES Rose l Result EXTERNAL NON-INTERFACED REF LAB * HM MAMMOGRAPHY FOR RESULT ENTRY ONLY (10/12/2024 8:24 AM EST) Result [facility] Provider HEALTH MAINTENANCE Final Result * Outside Glucose,Fasting (07/17/2023) Glucose, fasting - External 98 65 - 99 mg/dL Result [facility] Provider LAB BLOOD ORDERABLES Rose l Result * Pap Test (04/24/2022) Result [facility] Jewel Lopez MD CYTOLOGY ORDERABLES Edited Re sult - Final * HM COLONOSCOPY FOR RESULT ENTRY ONLY (04/26/2021) Result [facility] Shahida IGLESIAS HEALTH MAINTENANCE Edited Result - Final from Last 3 Months or Most Recently Relevant to Health Maintenance Insurance [employer] [place] [address] BENEFITS ADMIN[employer]ATORS [facility] [employer] [facility] [employer] [facility] [employer] [facility] [employer] [facility] [employer] [facility] ADMINISTRATORS Care Teams Monitoring Tech Relationship Specialty Start Date End Date Jewel Lopez MD [address] [place] [id number] [email or web address] PCP - General Internal Medicine 05/14/21 Additional Source Comments The information contained in this document represents components of the legal health record. It is not the complete legal health record.[facility]
--- OUTSIDE RECORDS SUMMARY | 2025-07-17 18:16 | XMS_ITS | Patient Health Record ---
Author Organization [facility] Address [address] [place] [address] Care Team Providers Care Factory Supervisor Name Role Phone Jewel Lopez MD [...] MG TAKE 1 CAPSULE BY MOUTH EVERY DAY; Duration: 90 Active Sertraline HCl 50 MG Oral; Duration: 90 Active Losartan Potassium 25 MG 1 tablet Orally Once a day Active Metoprolol Succinate ER 50 MG Orally Active Immunizations Vaccine Route Administration Date Status Comme nts Influenza Unknown 07/04/2020 Administered Influenza Unknown 05/22/2022 Administered Problems Problem Type SNOMED Code ICD Code Onset Dates Problem Status W/U Status Risk Notes Problem Colon cancer screening (298359164) Colon cancer screening (Z12.11) Active confirmed Problem Rectal bleeding (16266611) Rectal bleeding (K62.5) Active confirmed Problem Diarrhea (89118778) Diarrhea (R19.7) Active con firmed Problem Change in bowel habit (88521210) Change in bowel habits (R19.4) Active confirmed Problem Gastroesophageal reflux disease without esophagitis (535565481) Gastroesophageal reflux disease without esophagitis (K21.9) Active confirmed Problem Elevated liver enzymes level (942875565) Elevated LFTs (R94.5) Active confirmed Vital Signs Blood pressure diastolic 77 mm Hg 01/19/2025 Height 67.5 in 01/19/2025 Blood pressure systolic 111 mm Hg 01/19/2025 Weight 201 lbs 01/19/2025 BMI 31.01 kg/m2 01/19/2025 Encounters Encounter Location Date Provider Diagnosis [facility] [address] [place] [address] 01/19/2025 Rebel Matias Jr Elevated LFTs R94.5 ; Gastroesophageal reflux disease without esophagitis K21.9 and Colon cancer screening Z12.11 [facility] [address] [place] [address] 10/05/2024 Rebel Matias Jr Assessments Encounter Date [...] Provider Name:Rebel raza Jr, 01/25/2026 03:55:00 PM, [address] [place] [address], [address], [place], [address], Insurance Providers Payer Name Payer Address Payer Phone Subscriber Number Group Number Insured Name Patient Relationship to Insured Coverage Start Date Coverage End Date [employer] [place] [address] [address] [place] [address] [id number] PARMINDER GARDUNO Self - patient is [...]
== END 2025-07-17 15:31 | disposition home or self-care (01) ==
LOC: HO.HCS 14:49
PROVIDERS: PCP Internal Medicine; Visit Provider Internal Medicine Cardiovascular Disease
DX: I48.0 Paroxysmal atrial fibrillation (principal); I10 Essential (primary) hypertension
CPT/HCPCS: 93010; 99214

== ENCOUNTER → 2025-07-17 14:48 | Outpatient (BNVA) | payer OTHER, SELFPAY | PROVIDERS: PCP Internal Medicine; Visit Provider Internal Medicine Cardiovascular Disease | DX: I10 Essential (primary) hypertension (principal); I48.0 Paroxysmal atrial fibrillation | CPT/HCPCS: 93005 ==